=== PATIENT | female | born 1950 | race Caucasian/White ===

== ENCOUNTER 2016-09-22 12:42 | Inpatient (IN) | payer MEDICAID ==
[~2016-09-22] VITALS: Ht 152.4 cm; Wt 52.6 kg
--- NOTE | 2016-09-22 12:50 | NUR ---
AAOX3, CAME TO ER FOR DIALYSIS. PATIENT LAST DIALYSIS WAS 7 DAYS AGO. RESP IS EVEN AND UNLABORED WITH NAD NOTED. SKIN IS WARM AND DRY. ASSISTED TO HOSPITAL GOWN. PLACED ON MONITOR. WILL CONTINUOUSLY MONITOR THE PATIENT. AWAITING MD FOR EVAL.
[2016-09-22 13:13] LABS: BASOPHILS # (AUTO) 0.1 /CMM (0.0-0.2); BASOPHILS % (AUTO) 0.9 % (0.0-2.0); EOSINOPHILS # (AUTO) 0.5 /CMM (0.0-0.7); EOSINOPHILS % (AUTO) 6.1 % (0.0-6.0); HEMATOCRIT 29 % (33-45); HEMOGLOBIN 9.4 g/dL (11.5-14.8); LYMPHOCYTES # (AUTO) 1.1 /CMM (0.8-4.8); MEAN CORPUSCULAR HEMOGLOBIN 32 PG (26.0-33.0); MEAN CORPUSCULAR HGB CONC 33 g/dl (31.0-36.0); MEAN CORPUSCULAR VOLUME 97 fL (82-100); MONOCYTES # (AUTO) 0.6 /CMM (0.1-1.30); NEUTROPHILS # (AUTO) 5.4 /CMM (1.8-8.9); PLATELET COUNT (AUTO) 253 /CMM (150-450); RDW COEFFICIENT OF VARIATION 15.4 (11.5-15.0); RED BLOOD CELL COUNT(AUTO) 2.97 MIL/uL (4.0-5.2); WHITE BLOOD COUNT (AUTO) 7.7 K/uL (4.3-11.0)
[2016-09-22 13:32] LABS: ALBUMIN 3.8 g/dL (3.4-5.0); BILIRUBIN,DIRECT 0.1 mg/dL (0.0-0.2); BILIRUBIN,TOTAL 0.5 mg/dL (0.2-1.0); CALCIUM, SERUM 8.2 mg/dL (8.5-10.1); TOTAL PROTEIN, SERUM 8.2 g/dL (6.4-8.2)
[2016-09-22 13:33] LABS: POTASSIUM 6.2 mmol/L (3.5-5.1)
--- NOTE | 2016-09-22 13:34 | NUR ---
CALLED NURSING SUP. FOR TELE BED
[2016-09-22 13:35] LABS: CREATININE 15.5 mg/dL (0.6-1.3)
[2016-09-22] MEDS ORDERED: INSULIN REGULAR, HUMAN 100 UNIT/ML 10 ML VIAL ONE (13:39)
[2016-09-22] MEDS ORDERED: FUROSEMIDE 20 MG/2 ML VIAL ONE (13:39)
[2016-09-22] MEDS ORDERED: DEXTROSE 50%-WATER 50 ML DISP.SYRIN ONE (13:39)
[2016-09-22] MEDS ORDERED: INSU100V7 SQ (13:47)
[2016-09-22] MEDS ORDERED: VITA1TAB56 PO (13:47)
[2016-09-22] MEDS ORDERED: CYAN10009 PO (13:47)
[2016-09-22] MEDS ORDERED: ATOR10TA PO (13:47)
[2016-09-22] MEDS ORDERED: AMLO10TA2 PO (13:47)
[2016-09-22] MEDS ORDERED: SEVE800T PO (13:47)
[2016-09-22] MEDS ORDERED: CLOP75TA2 PO (13:47)
[2016-09-22] MEDS ORDERED: FURO40TA5 PO (13:47)
[2016-09-22] MEDS ORDERED: TRAMADOL HCL 50 MG TABLET ONE (13:59)
[2016-09-22] MEDS ORDERED: DEXTROSE 50%-WATER 50 ML DISP.SYRIN IV ONE (14:00)
[2016-09-22] MEDS ORDERED: TRAMADOL HCL 50 MG TABLET PO ONE (14:00)
[2016-09-22] MEDS ORDERED: FUROSEMIDE 40 MG/4 ML VIAL IV ONE (14:00)
[2016-09-22] MEDS ORDERED: INSULIN REGULAR, HUMAN 100 UNIT/ML 10 ML VIAL IV ONE (14:00)
[2016-09-22] MEDS ORDERED: AMLODIPINE BESYLATE 5 MG TABLET PO SCH (14:00)
--- NOTE | 2016-09-22 14:15 | NUR ---
REPORT GIVEN TO STEVIE JOSE FOR LANE TELE [phone]
--- NOTE | 2016-09-22 15:30 | NUR ---
MS RN RECEIVED A NEW ADMISSION, 65 YEAR OLD FEMALE, AWAKE,ALERT,ORIENTED X4, CAME IN W/ CHRONIC KIDNEY DISEASE, NO HD FOR 7 DAYS, PATIENT UNDER DR. SMITH, WILL BE DIALIZED TODAY.
[2016-09-22 16:00] VITALS: BP 144/82
--- NOTE | 2016-09-22 16:00 | NUR ---
MS RN HD STARTED, TOLERATED WELL, NO DISTRESS NOTED,ALL NEEDS ATTENDED.
[2016-09-22] MEDS ORDERED: DEXTROSE 50%-WATER 50 ML DISP.SYRIN IV PRN (19:30)
--- NOTE | 2016-09-22 19:33 | NUR ---
MS RN HD STILL GOING ON, ENDORSED TO COBOL PROGRAMMER FOR CONTINUITY OF CARE., HELD B/P MEDS FOR DIALYSIS.
--- NOTE | 2016-09-22 19:48 | NUR ---
TELE/RN OPENING NOTES PATIENT HD DONE WITH OUTPUT OF 1600 REMOVED. ALERT, ORIENTED X2,WEAK, B/P 108/52 PULSE 84, WILL NEED TO APPLY TELE MONITORING ORDERED. RECEIVED REPORT FROM AM RN REGARDING PLAN FOR HD GERARDO AND FAMILY AT BEDSIDE RECEIVED MEDICATION LIST AND RECONCILED. WILL NEED TO TAKE PHOTO OF SOME BUE/BLE SKIN DISCOLORATION.CALL LIGHTS WITHIN REACH, BED IN LOCK POSITION..PROVIDE/OFFER FLUIDS. MONITOR ANY S/S OF HYPO/HYPERGLYCEMIA.
[2016-09-22 20:00] VITALS: BP 108/52
--- NOTE | 2016-09-22 20:00 | NUR ---
TELE/RN NOTES TELE READING AT SR 82
[2016-09-22] MEDS: INSULIN DETEMIR 100 UNIT/ML CARTRIDGE SQ SCH (22:00)
[2016-09-22] MEDS: BLOOD SUGAR DIAGNOSTIC 1 EACH STRIP IN SCH (22:09)
[2016-09-22] MEDS: ATORVASTATIN 10 MG TABLET PO SCH (22:10)
[2016-09-23] VITALS: BP 177/73
[2016-09-23] MEDS ORDERED: hydrALAZINE HCL 10 MG TABLET PO PRN (01:00)
--- NOTE | 2016-09-23 01:04 | NUR ---
TELE/RN NOTES PATIENT S/P 178/70 ELEVATED AND SKIN ITCH ON BUE REPORTED TO BUTTON RECLAIMER MD WILFRED V AND ORDERED HYDRALAZINE 10MG PO PRN FOR SBP >160 Q6HR AND HYDROCORTISONE CREAM APPLY TO AFFECTED AREA FOR ITCH. MD ORDER CARRIED OUT,
[2016-09-23] MEDS ORDERED: hydrALAZINE HCL 10 MG TABLET ONE (01:13)
[2016-09-23 04:00] VITALS: BP 153/64
--- NOTE | 2016-09-23 06:14 | NUR ---
TELE/RN CLOSING NOTES PATIENT IN BED, AWAKE, ALERTX3. ABLE TO VERBALIZE NEEDS. B/P CHECK AND 152/70. NO PAIN BUT WITH SOME SKIN IRRITATION , WILL PROVIDE PRN FOR ITCH, NO S/S OF SOB. WILL MONITOR S/S OF HYPO/HYPERGLYCEMIA. WILL ENDORSE TO AM RN REGARDING LANE,
[2016-09-23] MEDS: BLOOD SUGAR DIAGNOSTIC 1 EACH STRIP IN SCH ×4 (06:40→21:12)
[2016-09-23 07:04] LABS: BASOPHILS % (AUTO) 0.6 % (0.0-2.0); EOSINOPHILS # (AUTO) 0.5 /CMM (0.0-0.7); EOSINOPHILS % (AUTO) 6.5 % (0.0-6.0); HEMATOCRIT 30 % (33-45); HEMOGLOBIN 10.4 g/dL (11.5-14.8); LYMPHOCYTES % (AUTO) 12.7 % (20.0-44.0); MEAN CORPUSCULAR HEMOGLOBIN 33 PG (26.0-33.0); MEAN CORPUSCULAR HGB CONC 34 g/dl (31.0-36.0); MEAN CORPUSCULAR VOLUME 95 fL (82-100); MONOCYTES # (AUTO) 0.8 /CMM (0.1-1.30); MONOCYTES % (AUTO) 10.2 % (2.0-12.0); NEUTROPHILS # (AUTO) 5.3 /CMM (1.8-8.9); PLATELET COUNT (AUTO) 215 /CMM (150-450); RDW COEFFICIENT OF VARIATION 16.2 (11.5-15.0); RED BLOOD CELL COUNT(AUTO) 3.19 MIL/uL (4.0-5.2); WHITE BLOOD COUNT (AUTO) 7.6 K/uL (4.3-11.0)
[2016-09-23 07:26] LABS: ALBUMIN 3.6 g/dL (3.4-5.0); BILIRUBIN,TOTAL 0.6 mg/dL (0.2-1.0); CALCIUM, SERUM 8.3 mg/dL (8.5-10.1); MAGNESIUM 2.3 mg/dL (1.8-2.4)
[2016-09-23 07:32] LABS: THYROID STIMULATING HORMONE 1.455 uIU/mL (0.358-3.74)
[2016-09-23 07:36] LABS: PHOSPHORUS 8.1 mg/dL (2.5-4.9)
--- NOTE | 2016-09-23 07:42 | NUR ---
tele/rn notes received critical phosphorus level from lab for dialysis patient.
[2016-09-23 08:00] VITALS: BP 175/77
--- NOTE | 2016-09-23 08:00 | NUR ---
MS/RN AM SHIFT INITIAL NOTES RECEIVED PT AWAKE SITTING IN BED. PT A/O X 4, DENIES ANY SYMPTOMS, VERBALIZED FEELING BETTER TODAY COMPARED TO YESTERDAY. NO ACUTE CHANGE OF CONDITION NOTED. PT ON ROOM AIR, SATURATING @ 98%, LUNG SOUNDS CLEAR. IV SITE FLUSHED PATENT WITH NO S/S OF INFECTION, SL. AV FISTULA (+) OF THRILL AND BRUIT. PT IS SCHEDULED FOR DIALYSIS TX TODAY. SCHEDULED AM MEDS TO BE GIVEN. CL WITHIN REACHED AND SAFETY MAINTAINED. ON GOING MONITORING.
[2016-09-23] MEDS: PANTOPRAZOLE 40 MG TABLET.DR PO SCH (09:07)
[2016-09-23] MEDS: HYDROCORTISONE 0.5% CREAM 28.35 GM TUBE TP SCH (12:04)
[2016-09-23] MEDS: CALCIUM ACETATE 667 MG TABLET PO SCH ×2 (12:04→17:33)
[2016-09-23] MEDS: VIT B CMPLX 3/FA/VIT C/BIOTIN 1 TAB TABLET PO SCH (12:04)
[2016-09-23 16:00] VITALS: BP 163/73
[2016-09-23] MEDS: CLONIDINE HCL 0.1 MG TABLET PO PRN (18:52)
--- NOTE | 2016-09-23 19:30 | NUR ---
RN NOTES RECEIVED PT. AWAKE ON BED, A/OX4, AMBULATORY, S/P DIALYSIS, DENIES PAIN, NO SOB, CALL LIGHT WITHIN REACH, SIDERAILS UPX2 CONTINUE O MONITOR
--- NOTE | 2016-09-23 19:40 | NUR ---
MS/RN AM SHIFT END NOTES ALL NEEDS MET. PT HAD DIALYSIS TX, REMOVED 1.1 L OF FLUID, PT WAS CRAMPING AND TX WAS TERMINATED EARLY THAN SCHEDULED, POST TX, BP WAS HIGH, PT GIVEN PRN CLONIDINE. NO ACUTE CHANGE OF CONDITION NOTED DURING THE SHIFT. PT ENDORSED TO PM NURSE TO CONTINUE CARE. CL WITHIN REACHED AND SAFETY MAINTAINED.
[2016-09-23 20:00] VITALS: BP 153/56
[2016-09-23] MEDS: ATORVASTATIN 10 MG TABLET PO SCH (21:16)
[2016-09-23] MEDS: INSULIN DETEMIR 100 UNIT/ML CARTRIDGE SQ SCH (21:16)
--- NOTE | 2016-09-23 22:00 | NUR ---
RN NOTES PT. REFUSED HER LEVEMIR, BLOOD SUGAR- 113
[2016-09-24] VITALS (7 sets, daily range): BP systolic 123–163; BP diastolic 51–75
--- NOTE | 2016-09-24 06:44 | NUR ---
RN NOTES AWAKE, MORNING CARE RENDERED, PT. NEEDS ATTENDED. ENDORSED TO DAYSHIFT NURSE FOR CONTINUITY OF CARE
[2016-09-24 06:53] LABS: CALCIUM, SERUM 9.7 mg/dL (8.5-10.1); POTASSIUM 4.1 mmol/L (3.5-5.1)
[2016-09-24 07:05] LABS: CREATININE 7.6 mg/dL (0.6-1.3)
[2016-09-24] MEDS: BLOOD SUGAR DIAGNOSTIC 1 EACH STRIP IN SCH ×4 (07:30→22:33)
[2016-09-24] MEDS: PANTOPRAZOLE 40 MG TABLET.DR PO SCH (07:30)
--- NOTE | 2016-09-24 08:08 | NUR ---
Rounds after review of chart. Slight confusion on time, thought it was 12 and hospital initially thought it was another hospital. Possible language barrier. Phons., Creatinine and bun elevation.
--- NOTE | 2016-09-24 08:45 | NUR ---
Dialysis start at this time.
[2016-09-24] MEDS: AMLODIPINE BESYLATE 5 MG TABLET PO SCH ×2 (09:00→09:19)
[2016-09-24] MEDS ORDERED: IV NS 0.9% 1,000 ML ONE (09:13)
[2016-09-24] MEDS: CALCIUM ACETATE 667 MG TABLET PO SCH ×3 (09:19→18:26)
[2016-09-24] MEDS: VIT B CMPLX 3/FA/VIT C/BIOTIN 1 TAB TABLET PO SCH (09:19)
[2016-09-24] MEDS: HYDROCORTISONE 0.5% CREAM 28.35 GM TUBE TP SCH (09:21)
--- NOTE | 2016-09-24 09:22 | NUR ---
Normal saline given to dialysis nurse for flush of machine only. Patient non admin accucheck. Stable am glucose in lab work, 85mg/dl.
--- NOTE | 2016-09-24 11:45 | NUR ---
Patient family member [place] brought food to patient. After eating patient has pain and nausea. Says headache pain. Will call MD. Request of patient to take blood pressure.
[2016-09-24] MEDS ORDERED: ACETAMINOPHEN 650 MG/20.3 ML UDC NG PRN (12:00)
[2016-09-24] MEDS ORDERED: ONDANSETRON HCL/PF 4 MG/2 ML VIAL IV PRN (12:00)
--- NOTE | 2016-09-24 12:00 | NUR ---
Dialysis end. 1 Liter out. Blood pressure 144/61.
--- NOTE | 2016-09-24 14:15 | NUR ---
Rounds to patient room. Left side lying at this time.
--- NOTE | 2016-09-24 16:23 | NUR ---
Patient awoke without headache at this time. Ate [employer] family member had brought to her. She said nausea was better as well.
[2016-09-24] MEDS: INSULIN REGULAR, HUMAN 100 UNIT/ML 3 ML VIAL SQ PRN ×2 (16:46→22:44)
--- NOTE | 2016-09-24 17:04 | NUR ---
Blood glucose 164mg/dl required 3 units of regular insulin coverage.
--- NOTE | 2016-09-24 19:30 | NUR ---
MS/RN OPENING NOTES PT RESTING COMFORTABLY IN BED. EASILY AROUSABLE TO NAME/TOUCH. ON ROOM AIR. NO SOB OR S/S OF DISTRESS NOTED. IV TO RIGHT FA PATENT AND INTACT. REINFORCED WITH TAPE. PT HAD HD TODAY WITH 1L OUT. BED IN LOW/LOCKED POSITION WITH CALL LIGHT IN REACH. BED RAILS UPX2. WILL CONTINUE TO MONITOR
[2016-09-24] MEDS: ATORVASTATIN 10 MG TABLET PO SCH (22:34)
[2016-09-24] MEDS: INSULIN DETEMIR 100 UNIT/ML CARTRIDGE SQ SCH (22:43)
--- NOTE | 2016-09-24 23:00 | NUR ---
MS/RN BLOOD [id number]. ADMINISTERED SCHEDULED LEVEMIR AND 2 UNITS OF REGULAR INSULIN PER SLIDING SCALE. SNACKS PROVIDED AT BEDSIDE. WILL MONITOR FOR S/S OF HYPOGLYCEMIA
[2016-09-25] MEDS ORDERED: ZOLPIDEM TARTRATE 5 MG TABLET ONE (00:58)
--- NOTE | 2016-09-25 01:00 | NUR ---
MS/RN NOTES SPOKE TO DR. ARAGON BASKET HAND BRAIDER, ORDERED AMBIEN 5MG PO PRN INSOMNIA. ORDERS NOTED AND CARRIED OUT.
[2016-09-25] MEDS: ZOLPIDEM TARTRATE 5 MG TABLET PO PRN ×2 (01:02→21:22)
[2016-09-25] MEDS: BLOOD SUGAR DIAGNOSTIC 1 EACH STRIP IN SCH ×4 (06:58→21:03)
--- NOTE | 2016-09-25 06:59 | NUR ---
MS/RN NOTES BLOOD [id number], NO INSULIN ADMINISTRATION PER SLIDING SCALE. WILL CONTINUE TO MONITOR
--- NOTE | 2016-09-25 07:35 | NUR ---
MS/RN CLOSING NOTES PT AWAKE, A/OX3, ON ROOM AIR, NO SOB OR S/S OF DISTRESS OR PAIN NOTED. BREATHING EVEN AND UNLABORED. IV TO RFA PATENT AND INTACT. MADE PT COMFORTABLE THROUGHOUT SHIFT. ALL NEEDS MET AND ATTENDED. BED IN LOW/LOCKED POSITION WITH CALL LIGHT IN REACH. BED RAILS UPX2. ENDORSED TO AM SHIFT LANE.
[2016-09-25 07:38] LABS: CALCIUM, SERUM 9.5 mg/dL (8.5-10.1); MAGNESIUM 2.2 mg/dL (1.8-2.4); PHOSPHORUS 6.4 mg/dL (2.5-4.9); POTASSIUM 4.6 mmol/L (3.5-5.1)
--- NOTE | 2016-09-25 07:39 | NUR ---
RN OPENING NOTES RECEIVED PT. IN BED, AWAKE, HOB ELEVATED, NO SOB OR DISTRESS NOTED. A/O X3. IV INTACT AND PATENT. KEPT PATIENT CLEAN AND COMFORTABLE IN BED, CALL LIGHT WITHIN PATIENT REACH, WILL CONTINUE TO MONITOR ACCORDINGLY.
[2016-09-25 07:40] LABS: CREATININE 7.5 mg/dL (0.6-1.3)
[2016-09-25 08:00] VITALS: BP 146/71
[2016-09-25] MEDS: PANTOPRAZOLE 40 MG TABLET.DR PO SCH (08:39)
[2016-09-25] MEDS: CALCIUM ACETATE 667 MG TABLET PO SCH ×3 (08:39→17:51)
[2016-09-25] MEDS: AMLODIPINE BESYLATE 5 MG TABLET PO SCH (08:40)
[2016-09-25] MEDS: VIT B CMPLX 3/FA/VIT C/BIOTIN 1 TAB TABLET PO SCH (08:40)
[2016-09-25] MEDS: HYDROCORTISONE 0.5% CREAM 28.35 GM TUBE TP SCH (08:41)
[2016-09-25] MEDS ORDERED: TEMAZEPAM 7.5 MG CAPSULE PO PRN (10:00)
[2016-09-25] MEDS: INSULIN REGULAR, HUMAN 100 UNIT/ML 3 ML VIAL SQ PRN ×2 (12:08→21:11)
--- NOTE | 2016-09-25 14:30 | NUR ---
RN NOTES PATIENT IS WITH SON AT BEDSIDE WITH NO SOB OR DISTRESS NOTED.
[2016-09-25 16:00] VITALS: BP 141/79
--- NOTE | 2016-09-25 19:32 | NUR ---
ms/rn opening notes patient alert, oriented x3.able to verbalize needs. no s/s of sob or distress. received endorsement from am regarding continuity of care. patient awaiting for placement for dialysis will inform md regarding any changes. monitoring for any s/s of hypo/hyperglycemia. patient verbalized the need for sleeping pill as she stated she was not able to sleep and prefer to have it early.will continue to monitor. call lights within reach. fluids at bedside.
--- NOTE | 2016-09-25 19:33 | NUR ---
RN NOTES PATIENT IS COMFORTABLE IN BED WITH NO SOB OR DISTRESS NOTED.
--- NOTE | 2016-09-25 19:33 | NUR ---
RN CLOSING NOTES ALL NEEDS PROVIDED, ATTENDED, AND ANTICIPATED. KEPT PATIENT CLEAN AND COMFORTABLE IN BED. CALL LIGHT WITHIN PATIENT REACH, WILL CONTINUE TO MONITOR ACCORDINGLY. ENDORSED TO NEXT SHIFT RN TO CONTINUE CARE
[2016-09-25 20:00] VITALS: BP 179/89
[2016-09-25] MEDS: hydrALAZINE HCL 10 MG TABLET PO PRN (20:13)
[2016-09-25 20:31] VITALS: BP 179/89
[2016-09-25] MEDS: INSULIN DETEMIR 100 UNIT/ML CARTRIDGE SQ SCH (21:11)
--- NOTE | 2016-09-25 21:18 | NUR ---
ms/rn notes patient in bed , alert, oriented verbalized cant sleep and would like to take sleeping pill. given prn b/p med for sbp 172/70 will monitor
[2016-09-25] MEDS: ATORVASTATIN 10 MG TABLET PO SCH (21:22)
[2016-09-26] MEDS: BLOOD SUGAR DIAGNOSTIC 1 EACH STRIP IN SCH ×4 (06:14→21:40)
--- NOTE | 2016-09-26 06:32 | NUR ---
ms/rn closing notes patient in bed, awake, alert x3. able to verbalize needs. re apply dvt pump, bs check aw/ no coverage. patient verbalize need to be dc but awaiting for placement regarding hd and insurance, bed in lock position, call lights within reach, personal item within reach. will endorse to am rn regarding continuity of care.
--- NOTE | 2016-09-26 07:24 | NUR ---
RN OPENING NOTES RECEIVED PT. IN BED, AWAKE, HOB ELEVATED, NO SOB OR DISTRESS NOTED. A/O X4. IV INTACT AND PATENT. KEPT PATIENT CLEAN AND COMFORTABLE IN BED, CALL LIGHT WITHIN PATIENT REACH, WILL CONTINUE TO MONITOR ACCORDINGLY.
[2016-09-26 07:54] LABS: CALCIUM, SERUM 10.1 mg/dL (8.5-10.1); MAGNESIUM 2.1 mg/dL (1.8-2.4); PHOSPHORUS 6.3 mg/dL (2.5-4.9); POTASSIUM 4.9 mmol/L (3.5-5.1)
[2016-09-26 07:57] LABS: CREATININE 9.5 mg/dL (0.6-1.3)
[2016-09-26 08:00] VITALS: BP 179/76
[2016-09-26] MEDS: VIT B CMPLX 3/FA/VIT C/BIOTIN 1 TAB TABLET PO SCH (08:39)
[2016-09-26] MEDS: PANTOPRAZOLE 40 MG TABLET.DR PO SCH (08:39)
[2016-09-26] MEDS: CALCIUM ACETATE 667 MG TABLET PO SCH ×3 (08:39→17:27)
[2016-09-26] MEDS: HYDROCORTISONE 0.5% CREAM 28.35 GM TUBE TP SCH (08:40)
[2016-09-26] MEDS: AMLODIPINE BESYLATE 5 MG TABLET PO SCH (08:40)
--- NOTE | 2016-09-26 11:30 | NUR ---
RN NOTES PATIENT REFUSED ACCU CHECK BECAUSE SHE SAID THAT SHE DO NOT WANT TO BE POCK SO MANY TIMES A DAY. SHE ASK ME TO COME BACK AT 1730 FOR THE NEXT ACCU CHECK.
--- NOTE | 2016-09-26 14:30 | NUR ---
RN NOTES PATIENT IS AWAKE WATCHING HER IPAD WITH NO SIGNS OF SOB OR DISTRESS NOTED.
[2016-09-26 16:00] VITALS: BP 160/70
--- NOTE | 2016-09-26 16:40 | NUR ---
RN FRANCISCA JOSEPH THE MARGIN ANALYST INFORMED ME THAT PATIENT WILL LEAVE AMA TOMORROW MORNING BECAUSE OF INSURANCE ISSUES.
[2016-09-26 20:00] VITALS: BP 164/85
--- NOTE | 2016-09-26 20:03 | NUR ---
MS/RN OPENING NOTES PATIENT IN BED, HAVING DIALYSIS PROCEDURE STARTED IN LATER PART OF PM .ALERT, ORIENTEDX3. NO S/S OF SOB OR DISTRESS. RECEIVED ENDORSEMENT FROM AM RN REGARDING RESIDENT REFUSAL TO HAVE ACCUCHECK AND PREFER TO HAVE IT DONE AFTER DIALYSIS. WILL CONTINUE TO PROVIDE CARE AND ATTEND NEEDS. BED IN LOCK POSITION.
[2016-09-26] MEDS: INSULIN DETEMIR 100 UNIT/ML CARTRIDGE SQ SCH (21:43)
[2016-09-26] MEDS: ATORVASTATIN 10 MG TABLET PO SCH (21:49)
[2016-09-26] MEDS: ZOLPIDEM TARTRATE 5 MG TABLET PO PRN (21:49)
--- NOTE | 2016-09-27 03:30 | NUR ---
ms/rn notes report given to rn for continuity of care.
--- NOTE | 2016-09-27 07:30 | NUR ---
RECEIVED PT. ALERT AND ORIENTED X4-NO COMPLAINTS OFFERED.
[2016-09-27 08:00] VITALS: BP 182/73
[2016-09-27] MEDS: BLOOD SUGAR DIAGNOSTIC 1 EACH STRIP IN SCH ×5 (08:31→21:32)
[2016-09-27] MEDS: VIT B CMPLX 3/FA/VIT C/BIOTIN 1 TAB TABLET PO SCH (08:32)
[2016-09-27] MEDS: NIFEdipine XL (30MG) 30 MG TAB PO SCH (08:32)
[2016-09-27] MEDS: CALCIUM ACETATE 667 MG TABLET PO SCH ×3 (08:32→18:23)
[2016-09-27] MEDS: PANTOPRAZOLE 40 MG TABLET.DR PO SCH (08:33)
[2016-09-27] MEDS: HYDROCORTISONE 0.5% CREAM 28.35 GM TUBE TP SCH (08:36)
[2016-09-27 09:22] VITALS: BP 150/73
--- NOTE | 2016-09-27 14:56 | NUR ---
CASE MGMT. IN TO SPEAK WITH PT. REGARDING DC PLANNING.
[2016-09-27 16:00] VITALS: BP 169/73
[2016-09-27] MEDS: hydrALAZINE HCL 10 MG TABLET PO PRN (17:18)
--- NOTE | 2016-09-27 18:00 | NUR ---
REFUSING ACCU-CHECK AT NOON AND DINNER TIME.
--- NOTE | 2016-09-27 19:30 | NUR ---
RN NOTE; RECEIVED PT IN BED AWAKE AND ALERT. BREATHING EVENLY. NO SOB. NO S/S FLUID OVERLOAD. DENIED ANY PAIN. CALL LIGHT WITHIN REACH. WILL CONT TO MONITOR .
[2016-09-27 20:00] VITALS: BP 147/66
[2016-09-27] MEDS: diphenhydrAMINE HCL 25 MG CAPSULE PO PRN (21:32)
[2016-09-27] MEDS: ATORVASTATIN 10 MG TABLET PO SCH (21:32)
--- NOTE | 2016-09-27 21:33 | NUR ---
RN NOTE; BENADRYL GIVEN FOR C/O ITCHINESS. RESTORIL GIVEN PER PT'S REQUEST FOR C/O INABILITY TO SLEEP. EXPLAINED TO THE PT THAT BENADRYL WILL ALREADY MAKE HER SLEEPY BUT PT STILL WANTS TO TAKE THE RESTORIL AND ALSO REPORTED THAT AMBIEN DID NOT HELP HER TO SLEEP THE NIGHT BEFORE. WILL CONT TO MONITOR
[2016-09-27] MEDS: INSULIN REGULAR, HUMAN 100 UNIT/ML 3 ML VIAL SQ PRN (21:38)
[2016-09-27] MEDS: INSULIN DETEMIR 100 UNIT/ML CARTRIDGE SQ SCH (21:39)
--- NOTE | 2016-09-28 06:26 | NUR ---
RN NOTE; PT IN BED SLEEPING, AROUSES EASILY, NO ACUTE EVENT DURING THE NIGHT, NO C/O PAIN OR DISCOMFORT. NEEDS ATTENDED. CALL LIGHT WITHIN REACH. WILL CONT TO MONITOR
[2016-09-28] MEDS: BLOOD SUGAR DIAGNOSTIC 1 EACH STRIP IN SCH ×4 (06:48→21:37)
[2016-09-28 08:00] VITALS: BP 161/66
[2016-09-28] MEDS: NIFEdipine XL (30MG) 30 MG TAB PO SCH (09:15)
[2016-09-28] MEDS: CALCIUM ACETATE 667 MG TABLET PO SCH ×3 (09:16→17:54)
[2016-09-28] MEDS: PANTOPRAZOLE 40 MG TABLET.DR PO SCH (09:16)
[2016-09-28] MEDS: HYDROCORTISONE 0.5% CREAM 28.35 GM TUBE TP SCH (09:17)
[2016-09-28] MEDS: VIT B CMPLX 3/FA/VIT C/BIOTIN 1 TAB TABLET PO SCH (09:17)
[2016-09-28] MEDS: hydrALAZINE HCL 10 MG TABLET PO PRN (09:17)
[2016-09-28] MEDS: diphenhydrAMINE HCL 25 MG CAPSULE PO PRN ×2 (09:21→17:54)
[2016-09-28 16:00] VITALS: BP 148/64
--- NOTE | 2016-09-28 19:30 | NUR ---
RN NOTE; RECEIVED PT IN BED AWAKE AND ALERT W/ FAMILY AT THE BED SIDE. BREATHING EVENLY. NO SOB.. S/P HD W/ NO COMPLICATIONS. DRESSING ON AV FISTULA ON LFA CDI. DENIED ANY PAIN. CALL LIGHT WITHIN REACH. WILL CONT TO MONITOR .
[2016-09-28 20:00] VITALS: BP 119/62
[2016-09-28 20:18] VITALS: BP 119/62
[2016-09-28] MEDS: ATORVASTATIN 10 MG TABLET PO SCH (21:37)
[2016-09-28] MEDS: ZOLPIDEM TARTRATE 5 MG TABLET PO PRN (21:42)
--- NOTE | 2016-09-28 21:45 | NUR ---
AMBIEN GIVEN ORDERED PER PT'S REQUEST FOR C/O INSOMNIA. WILL CONT TO MONITOR
[2016-09-28] MEDS: INSULIN DETEMIR 100 UNIT/ML CARTRIDGE SQ SCH (21:46)
[2016-09-28] MEDS: INSULIN REGULAR, HUMAN 100 UNIT/ML 3 ML VIAL SQ PRN (21:47)
--- NOTE | 2016-09-29 06:16 | NUR ---
RN NOTE; PT IN BED SLEEPING . AROUSES EASILY. NO ACUTE CHANGES OR COMPLICATIONS S/P HD OVER THE NIGHT . NO C/O PAIN OR DISCOMFORT. NEEDS MET. CALL LIGHT WITHIN REACH. WILL CONT TO MONITOR.
[2016-09-29] MEDS: BLOOD SUGAR DIAGNOSTIC 1 EACH STRIP IN SCH ×4 (06:48→21:34)
[2016-09-29] MEDS: PANTOPRAZOLE 40 MG TABLET.DR PO SCH (06:57)
--- NOTE | 2016-09-29 07:52 | NUR ---
MS RN NOTES PATIENT IS IN BED RESTING. PATIENT IS A/OX4. NO SOB OR ANY S/S OF DISTRESS NOTED. IV IS PATENT AND INTACT. CALL LIGHT IS WITHIN REACH. BED IS IN LOWEST LOCKED POSITION. WILL CONTINUE TO MONITOR THROUGHOUT SHIFT.
[2016-09-29 08:05] VITALS: BP 138/64
[2016-09-29] MEDS: CALCIUM ACETATE 667 MG TABLET PO SCH ×3 (08:55→17:39)
[2016-09-29] MEDS: NIFEdipine XL (30MG) 30 MG TAB PO SCH (08:55)
[2016-09-29] MEDS: VIT B CMPLX 3/FA/VIT C/BIOTIN 1 TAB TABLET PO SCH (08:55)
[2016-09-29] MEDS: diphenhydrAMINE HCL 25 MG CAPSULE PO PRN ×2 (08:59→20:02)
[2016-09-29] MEDS: HYDROCORTISONE 0.5% CREAM 28.35 GM TUBE TP SCH (09:00)
[2016-09-29 16:14] VITALS: BP 147/68
--- NOTE | 2016-09-29 18:56 | NUR ---
MS RN NOTES PATIENT IS A/OX4. NO S/S OF DISTRESS NOTED. NO S/S OF SOB NOTED. FAMILY MEMBER AT BEDSIDE. PATIENT REFUSES ALL MORNING AND AFTERNOON BLOOD SUGAR CHECKS AND ONLY REQUESTS FOR HER BLOOD SUGAR TO BE CHECKED BEFORE BED. ALL PATIENT NEEDS HAVE BEEN MET. BED IS IN LOW LOCKED POSITION. CALL LIGHT WITHIN REACH. WILL ENDORSE CARE TO PM SHIFT.
--- NOTE | 2016-09-29 19:45 | NUR ---
RN INITIAL NOTES REPORT WAS RECEIVED FROM DAY SHIFT. PATIENT IS IN BED RESTING. PATIENT IS A/OX4. NO SOB OR ANY S/S OF DISTRESS NOTED. IV ON RIGHT HAND, LEFT AV FISTULA WITH BRUIT AND THRILL. CALL LIGHT IS WITHIN REACH. BED IS IN LOWEST LOCKED POSITION. WILL CONTINUE TO MONITOR THROUGHOUT SHIFT.
[2016-09-29 20:00] VITALS: BP 145/65
--- NOTE | 2016-09-29 20:08 | NUR ---
MS HUBBARD PRN PER PT REQUEST, BENADRYL WAS GIVEN FOR ITCHING.
[2016-09-29] MEDS: ATORVASTATIN 10 MG TABLET PO SCH (21:28)
[2016-09-29] MEDS: INSULIN REGULAR, HUMAN 100 UNIT/ML 3 ML VIAL SQ PRN (21:35)
[2016-09-29] MEDS: INSULIN DETEMIR 100 UNIT/ML CARTRIDGE SQ SCH (21:36)
--- NOTE | 2016-09-29 21:36 | NUR ---
BLOOD SUGAR BS 122, PT REFUSED LEVEMIR. WILL CONTINUE TO MONITOR FOR ANY S/S OF HYPO/HYPER GLYCEMIA
[2016-09-30] MEDS: INSULIN REGULAR, HUMAN 100 UNIT/ML 3 ML VIAL SQ PRN (06:09)
--- NOTE | 2016-09-30 06:19 | NUR ---
BLOOD SUGAR PT BLOOD SUGAR 151, PT REFUSED INSULIN. WILL CONTINUE TO MONITOR FOR S/S OF HYPO/HYPER GLYCEMIA
--- NOTE | 2016-09-30 06:28 | NUR ---
MS RN CLOSING NOTES PATIENT IS A/OX4. NO S/S OF DISTRESS NOTED. NO S/S OF SOB NOTED. PATIENT ALLOWED US TO CHECK BLOOD SUGAR BUT REFUSED INSULIN DURING PM SHIFT. PATIENT IS AWARE OF DIALYSIS SCHEDULED FOR TODAY. ALL PATIENT NEEDS HAVE BEEN MET. BED IS IN LOW LOCKED POSITION. CALL LIGHT WITHIN REACH. WILL ENDORSE CARE TO AM SHIFT.
[2016-09-30] MEDS: BLOOD SUGAR DIAGNOSTIC 1 EACH STRIP IN SCH ×4 (06:39→22:23)
--- NOTE | 2016-09-30 07:30 | NUR ---
MS RN NOTES RECEIVED PATIENT AWAKE IN BED. AOX3. BREATHING EVEN AND NON LABORED. DENIES ANY PAIN AT THIS TIME. PER ENGINEERING PRODUCTION WORKER REPORT PT IS FOR DIALYSIS TODAY. CALL LIGHT WITHIN REACH, BED IN LOW POSITION FOR SAFETY MEASURES. WILL CONTINUE TO MONITOR.
[2016-09-30 08:00] VITALS: BP 172/74
[2016-09-30] MEDS: VIT B CMPLX 3/FA/VIT C/BIOTIN 1 TAB TABLET PO SCH (08:27)
[2016-09-30] MEDS: CALCIUM ACETATE 667 MG TABLET PO SCH ×3 (08:27→17:47)
[2016-09-30] MEDS: PANTOPRAZOLE 40 MG TABLET.DR PO SCH (08:27)
[2016-09-30] MEDS: NIFEdipine XL (30MG) 30 MG TAB PO SCH (08:28)
[2016-09-30] MEDS: HYDROCORTISONE 0.5% CREAM 28.35 GM TUBE TP SCH (08:31)
[2016-09-30] MEDS: diphenhydrAMINE HCL 25 MG CAPSULE PO PRN ×2 (09:44→18:48)
--- NOTE | 2016-09-30 12:30 | NUR ---
MS RN NOTES HEMODIALYSIS STARTED, RN BILL AT BEDSIDE. V/S 170/79, HR 90, RR 20, TEMP 98.2. WILL CONITE TO MONITOR.
--- NOTE | 2016-09-30 14:00 | NUR ---
MS RN NOTES SEEN AND EXAMINED BY DR. TRAN WITH NO NEW ORDERS MADE.
--- NOTE | 2016-09-30 15:30 | NUR ---
MS RN NOTES HEMODIALYSIS FINISHED, OUTPUT 800CC. V/S BP 139/61, HR 95, RR 20, TEMP 97.8. O2 SAT 97%. WILL CONTINUE TO MONITOR.
[2016-09-30 16:00] VITALS: BP 139/61
[2016-09-30 18:30] VITALS: BP 170/68
--- NOTE | 2016-09-30 18:30 | NUR ---
MS RN NOTES PT TRANSFERRED TO MS 2 RM 205-2. REPORT GIVEN TO STEVIE GARCIA FOR CONTINUITY OF CARE.
--- NOTE | 2016-09-30 18:35 | NUR ---
MS RN NOTES PATIENT TRANSFERRED FROM [facility] FOR CONTINUITY OF CARE. PATIENT IS AWAKE, A/O X4. SAFELY ASSISTED PATIENT TO BED, NO C/O PAIN OR ANY DISCOMFORT. PLACE CALL LIGHT WITHIN REACH. ENDORSED TO SPORTS MEDICINE TRAINER RN FOR CONTINUITY OF CARE.
[2016-09-30] MEDS: hydrALAZINE HCL 10 MG TABLET PO PRN (18:49)
--- NOTE | 2016-09-30 19:30 | NUR ---
RN NOTES: RECEIVED ASLEEP ON BED IN FLAT POSITION, LYING COMFORTABLY,AWAKE IN BETWEEN, A/OX3,WITH BRP,RFA G#24 INTACT, LFA-AV FISTULA ,(+) FOR THRILL AND BRUIT SOUND,BED LOW AND LOCKED, CALL LIGHT WITHIN EASY REACH.
[2016-09-30 20:00] VITALS: BP 154/72
--- NOTE | 2016-09-30 21:50 | NUR ---
RN NOTES: AWAKE, CALLS AND NEEDS ATTENDED, ABLE TO AMBULATE WITH ASSIST TO THE BATHROOM.
--- NOTE | 2016-09-30 22:00 | NUR ---
RN NOTES: MORNING CARE DONE, DIAPER CHANGE, BLOOD SUGAR CHECKED-168,LEVEMIR GIVEN,WILL CONTINUE TO MONITOR FOR SIGN OF HYPER/HYPOGLYCEMIA.CALL LIGHT WITHIN EASY REACH.
[2016-09-30] MEDS: ATORVASTATIN 10 MG TABLET PO SCH (22:23)
[2016-09-30] MEDS: INSULIN DETEMIR 100 UNIT/ML CARTRIDGE SQ SCH (22:24)
--- NOTE | 2016-10-01 07:10 | NUR ---
MS RN NOTES RECEIVED PATIENT AWAKE, SITTING UP IN BED. NO SOB NOTED. NO C/O PAIN AT THIS TIME. CALL LIGHT WITHIN REACH. WILL CONT TO MONITOR.
[2016-10-01] MEDS: BLOOD SUGAR DIAGNOSTIC 1 EACH STRIP IN SCH ×4 (07:14→22:44)
[2016-10-01] MEDS: INSULIN REGULAR, HUMAN 100 UNIT/ML 3 ML VIAL SQ PRN ×2 (07:15→21:31)
--- NOTE | 2016-10-01 07:16 | NUR ---
RN NOTES: BLOOD SUGAR CHECK-81,NO INSULIN GIVEN PER SCALE, WILL CONTINUE TO MONITOR FOR HYPER/HYPOGLYCEMIA.ENDORSED FOR CONTINUITY OF CARE.
[2016-10-01 08:00] VITALS: BP 175/79
[2016-10-01] MEDS: VIT B CMPLX 3/FA/VIT C/BIOTIN 1 TAB TABLET PO SCH (08:01)
[2016-10-01] MEDS: diphenhydrAMINE HCL 25 MG CAPSULE PO PRN ×2 (08:01→21:27)
[2016-10-01] MEDS: CALCIUM ACETATE 667 MG TABLET PO SCH ×3 (08:01→17:46)
[2016-10-01] MEDS: PANTOPRAZOLE 40 MG TABLET.DR PO SCH (08:01)
[2016-10-01] MEDS: NIFEdipine XL (30MG) 30 MG TAB PO SCH (08:02)
[2016-10-01] MEDS: hydrALAZINE HCL 10 MG TABLET PO PRN (08:09)
[2016-10-01] MEDS: HYDROCORTISONE 0.5% CREAM 28.35 GM TUBE TP SCH (08:39)
[2016-10-01] MEDS: CLONIDINE HCL 0.1 MG TABLET PO PRN (12:10)
--- NOTE | 2016-10-01 12:13 | NUR ---
ELEVATED BP 190/72, PATIENT IS A/O X4, NO C/O HEADACHE OR DIZZINESS. GIVEN CLONIDINE 0.1MG PO PRN. WILL REASSESS BP. CALL LIGHT WITHIN REACH.
[2016-10-01 16:00] VITALS: BP 133/61
--- NOTE | 2016-10-01 16:48 | NUR ---
BP 133/61 PATIENT REFUSED CHECKING TEMP. PER PATIENT SHE FEELS OK AND SHE DON'T HAVE FEVER. EXPLAINED IMPORTANCE OF TAKING COMPLETE V/S BUT PATIENT STILL REFUSED TEMP CHECK X3.
--- NOTE | 2016-10-01 18:32 | NUR ---
MS RN NOTES PATIENT IN BED, A/O X3. NOT IN DISTRESS. PATIENT IS NON COMPLIANT WITH TREATMENT- ACCU CHECK, TEMP CHECK. NO C/O PAIN OR ANY DISCOMFORT. AMBULATORY, VOIDED WITHOUT DIFFICULTY, HAD BOWEL MOVEMENT TODAY. CALL LIGHT WITHIN REACH. WILL ENDORSE TO HAND ETCHER HELPER RN FOR CONTINUITY OF CARE.
--- NOTE | 2016-10-01 19:30 | NUR ---
RN NOTE; PT IN BED AWAKE AND ALERT. BREATHING EVENLY. NO SOB. NO DISTRESS. SKIN WARM AND DRY. NO S/S OF HYPO OR HYPERGLYCEMIA. NO C/O PAIN OR DISCOMFORT. HD CATH INTACT. NEEDS ATTENDED. CALL LIGHT WITHIN REACH. WILL CONT TO MONITOR
[2016-10-01 20:00] VITALS: BP 142/72
[2016-10-01] MEDS: ATORVASTATIN 10 MG TABLET PO SCH (21:27)
--- NOTE | 2016-10-01 21:27 | NUR ---
BENADRYL GIVEN ORDERED FOR C/O ITCHINESS. WILL CONT TO MONITOR
[2016-10-01] MEDS: INSULIN DETEMIR 100 UNIT/ML CARTRIDGE SQ SCH (21:29)
[2016-10-01 21:52] VITALS: BP 142/72
--- NOTE | 2016-10-01 22:00 | NUR ---
PT REFUSED TAKING PICTURES. STATED " IT'S OK. I HAVE NO SKIN PROBLEM" RISK VS. BENEFITS WERE EXPLAINED TO THE PT. Addendum: 10/02/16 at 0101 by CLARKE AHMADI RN Amended: Links added.
[2016-10-02] MEDS: BLOOD SUGAR DIAGNOSTIC 1 EACH STRIP IN SCH ×4 (06:55→21:54)
--- NOTE | 2016-10-02 07:14 | NUR ---
RN NOTE ; PT IN BED SLEEPING AROUSES EASILY. BREATHING EVENLY. NO ACUTE CHANGES OVER THE NIGHT. NO S/S OF HYPO OR HYPERGLYCEMIA. NO C/O PAIN OR DISCOMFORT,. NO S/S OF ELECTROLYTE IMBALANCE. ASSISTED W./ ADLS. CALL LIGHT WITHIN REACH. REPORT GIVEN TO JOSE FOR LANE,
--- NOTE | 2016-10-02 07:15 | NUR ---
MS RN NOTES RECEIVED PATIENT IN BED, AWAKE. A/O X4. BREATHING EVEN AND NON LABORED. PER REPORT PATIENT REFUSED PHOTOS OF SKIN. WILL FOLLOW UP. CALL LIGHT WITHIN REACH. FOR HD TODAY.
[2016-10-02] MEDS: CALCIUM ACETATE 667 MG TABLET PO SCH ×3 (07:55→17:52)
[2016-10-02] MEDS: NIFEdipine XL (30MG) 30 MG TAB PO SCH (07:55)
[2016-10-02] MEDS: VIT B CMPLX 3/FA/VIT C/BIOTIN 1 TAB TABLET PO SCH (07:55)
[2016-10-02] MEDS: PANTOPRAZOLE 40 MG TABLET.DR PO SCH (07:55)
[2016-10-02 08:00] VITALS: BP 152/71
--- NOTE | 2016-10-02 08:40 | NUR ---
PATIENT REFUSING HYDROCORTISONE CREAM TO APPLY IN HER SKIN RASH/DRYNESS/SCRATCHES. PER PATIENT ITS NOT HELPING, AND SHE IS USING CLOBETASOL CREAM AT HOME. PATIENT AGREED WITH THE SKIN PHOTOS, WILL NOTIFY MD REGARDING CLOBETASOL CREAM.
[2016-10-02] MEDS: HYDROCORTISONE 0.5% CREAM 28.35 GM TUBE TP SCH (09:00)
--- NOTE | 2016-10-02 10:30 | NUR ---
PATIENT IS SEEN BY DR. ARAGON TODAY, HD TODAY PER . CM TO PLACE PATIENT AT HD CENTER AFTER INSURANCE ISSUE IS RESOLVED. NO DISCHARGE AT THIS TIME, PATIENT IS AWARE.
[2016-10-02 16:00] VITALS: BP 155/67
--- NOTE | 2016-10-02 16:15 | NUR ---
DIALYSIS TREATMENT STARTED, DIALYSIS NURSE AT THE BEDSIDE.
[2016-10-02] MEDS: diphenhydrAMINE HCL 25 MG CAPSULE PO PRN (17:53)
--- NOTE | 2016-10-02 17:55 | NUR ---
DIALYSIS TREATMENT STOPPED, BLOOD CLOTTED. DIALYSIS NURSE INFORMED DR. TRAN.
--- NOTE | 2016-10-02 19:28 | NUR ---
MS RN CLOSING NOTES PATIENT IN BED, NOT IN DISTRESS. LEFT FOREARM AV SHUNT, DRESSING INTACT. NO BLEEDING NOTED. NO C/O ITCHING, BENADRYL PO PRN EFFECTIVE. CALL LIGHT WITHIN REACH. ENDORSED TO SOFTWARE REVERSE ENGINEER RN FOR CONTINUITY OF CARE.
--- NOTE | 2016-10-02 19:40 | NUR ---
RN INITIAL NOTES: RECEIVED REPORT FROM JOSE HUBBARD, PT IN BED, AWAKE, A/O X4, DENIES ANY SOB OR CHEST PAIN, DENIES ANY HEAD ACHE OR LIGHT HEADEDNESS, PT S/P HD TODAY BUT [employer] INSTRUCTOR HAD TO STOPPED THE HD BECAUSE OFCLOTTED BLOOD, MD MARC ALEJANDRO AWARE, NO NEW ORDERS GIVEN, LEFT ARM AV FISTULA REMAINS IN PLACED DRESSING C/D/I, PT HAS RIGHT FA IV ACCESS PATENT AND FLUSHING WELL, ON HL. SAFETY PRECAUTIONS FOR FALL INITIATED CALL LIGHT IN REACH WILL CONTINUE TO MONITOR
[2016-10-02 20:00] VITALS: BP 142/59
[2016-10-02] MEDS: INSULIN DETEMIR 100 UNIT/ML CARTRIDGE SQ SCH (21:55)
[2016-10-02] MEDS: ATORVASTATIN 10 MG TABLET PO SCH (21:55)
--- NOTE | 2016-10-02 21:55 | NUR ---
ACCU CHECK: BLOOD SUGAR CHECK AND REVEAL 110, NO INSULIN COVERAGE GIVEN PER SLIDING SCALE, ALSO PT REFUSED LIPITOR AND LEVEMIR, WILL MONITOR PT FOR ANY S/S OF HYPOGLYCEMIA, EDUCATE PT REGARDING IMPORTANCE OF MED COMPLIANCE
[2016-10-02] MEDS: ZOLPIDEM TARTRATE 5 MG TABLET PO PRN (22:32)
--- NOTE | 2016-10-02 22:32 | NUR ---
AMBIEN: PT REQUESTED FOR SLEEPING PILL, PRN AMBIEN 5MG TAB PO ADMINISTERED TO THE PT AT THIS TIME, WILL CONTINUE TO MONITOR AND REASSESS
--- NOTE | 2016-10-03 04:13 | NUR ---
RN NOTES: PT SLEEPING AT THIS TIME, NOT IN ANY DISTRESS
[2016-10-03] MEDS: BLOOD SUGAR DIAGNOSTIC 1 EACH STRIP IN SCH ×4 (06:17→21:44)
[2016-10-03] MEDS: INSULIN REGULAR, HUMAN 100 UNIT/ML 3 ML VIAL SQ PRN ×2 (06:17→21:52)
--- NOTE | 2016-10-03 06:18 | NUR ---
ACCU CHECK: BLOOD SUGAR SHOWS 115, NO INSULIN COVERAGE PER SLIDING SCALE, WILL MONITOR PT FOR ANY S/S OF HYPOGLYCEMIA
--- NOTE | 2016-10-03 06:54 | NUR ---
MS RN CLOSING NOTES: PT IN BED, AWAKE, NO S/S OF DISTRESS NOTED, IV ACCESS REMAINS PATENT AND FLUSHING WELL, ON HL. FISTULA DRESSING REMAINS C/D/I. VS REMAINS STABLE, NEEDS ATTENDED. WILL ENDORSE TO DAY RN FOR LANE.
--- NOTE | 2016-10-03 07:30 | NUR ---
MS RN AM NOTES: PT IN BED, AWAKE, A/O X4, ON RA, DENIES ANY SOB OR CHEST PAIN, DENIES ANY HEAD ACHE OR LIGHT HEADEDNESS, RFA 24 G HL FLUSHES WELL, SITE CLEAR, LFA AV SHUNT THRILL PRESENT. CDI DRESSING. RENAL DIET. AMBULATORY. SAFETY PRECAUTIONS FOR FALL INITIATED CALL LIGHT IN REACH WILL CONTINUE TO MONITOR
[2016-10-03 08:00] VITALS: BP 148/95
[2016-10-03] MEDS: PANTOPRAZOLE 40 MG TABLET.DR PO SCH (09:11)
[2016-10-03] MEDS: CALCIUM ACETATE 667 MG TABLET PO SCH ×3 (09:11→17:18)
[2016-10-03] MEDS: VIT B CMPLX 3/FA/VIT C/BIOTIN 1 TAB TABLET PO SCH (09:11)
[2016-10-03] MEDS: NIFEdipine XL (30MG) 30 MG TAB PO SCH (09:12)
[2016-10-03] MEDS: diphenhydrAMINE HCL 25 MG CAPSULE PO PRN ×2 (09:13→19:43)
[2016-10-03] MEDS: HYDROCORTISONE 0.5% CREAM 28.35 GM TUBE TP SCH (09:13)
--- NOTE | 2016-10-03 09:30 | NUR ---
MS RN NOTES ADMINISTERED DUE MEDS.
--- NOTE | 2016-10-03 12:25 | NUR ---
MS RN NOTES REFUSED ACCUCHECK.
--- NOTE | 2016-10-03 14:00 | NUR ---
MS RN NOTES [facility] HD NURSE AT BEDSIDE.
[2016-10-03 16:00] VITALS: BP 164/85
--- NOTE | 2016-10-03 16:30 | NUR ---
MS RN NOTES HD COMPLETED 1.4 LITERS OUT. VSS
--- NOTE | 2016-10-03 17:30 | NUR ---
MS RN NOTES REFUSED ACCUCHECK.
[2016-10-03 18:00] VITALS: BP 164/85
--- NOTE | 2016-10-03 19:22 | NUR ---
MS RN NOTES NO OTHER SIGNIFICANT FINDINGS FOR TODAY. ALL NEEDS MET. PATIENT RESTING COMFORTABLY. NOT IN ANY DISTRESS. SAFETY MEASURES IN PLACE. ENDORSED TO NEXT SHIFT FOR LANE.
--- NOTE | 2016-10-03 19:30 | NUR ---
MS RN NOTES RECEIVED ON BED A/O X4,ABLE TO VERBALIZED NEEDS,ON HEMODIALYSIS,HD TOMORROW ORDER.WITH LEFT AV FISTULA FOR HD ACCESS,RFA SALINE LOCK FOR MEDS INTACT AND PATENT.C/O GENERALIZED ITCHINESS.WILL MEDICATE.CALL DOSS IN REACH,NEEDS ANTICIPATED.
--- NOTE | 2016-10-03 19:43 | NUR ---
MS RN NOTES MEDICATED WITH BENADRYL 25MG PO ORDERED Q 6 PRN FOR ITCHINESS
[2016-10-03 20:06] VITALS: BP 135/53
[2016-10-03 20:07] VITALS: BP 135/53
[2016-10-03] MEDS: ATORVASTATIN 10 MG TABLET PO SCH (21:43)
[2016-10-03] MEDS: ZOLPIDEM TARTRATE 5 MG TABLET PO PRN (21:44)
--- NOTE | 2016-10-03 21:44 | NUR ---
MS RN NOTES C/O INSOMNIA,AMBIEN 5MG PO GIVEN PER PATIENT REQUEST.
[2016-10-03] MEDS: INSULIN DETEMIR 100 UNIT/ML CARTRIDGE SQ SCH (21:51)
--- NOTE | 2016-10-03 22:00 | NUR ---
MS RN NOTES ACCU-CHECK BLOOD SUGAR CHECK 205,COVERED WITH HUMULIN E 4 UNITS PER SLIDING SCALE,ALONG LEVEMIR 14 UNITS GIVEN SQ VIA RIGHT DELTOID.WILL MONITOR FOR S/S OF HYPOGLYCEMIA
--- NOTE | 2016-10-04 04:00 | NUR ---
MS RN NOTES AWAKE,LISTENING TO MUSIC
--- NOTE | 2016-10-04 06:17 | NUR ---
MS RN NOTES APPEARS SLEEPY BUT SHES CLAIMING SHE DIDNT SLEEP.APPEARS DROWSY.CALL DOSS IN REACH,NEEDS ANTICIPATED WILL ENDORSE TO CARINE HUBBARD FOR LANE
[2016-10-04] MEDS: BLOOD SUGAR DIAGNOSTIC 1 EACH STRIP IN SCH ×4 (06:59→21:48)
--- NOTE | 2016-10-04 07:01 | NUR ---
MS RN NOTES ACCU-CHECK BLOOD SUGAR CHECK 65,ASYMPTOMATIC FOR HYPOGLYCEMIA.ORANGE JUICE WITH SUGAR GIVEN.WILL CONTINUE TO MONITOR STATUS.
--- NOTE | 2016-10-04 07:30 | NUR ---
MS RN AM NOTES: PT IN BED, AWAKE, A/O X4, ON RA, DENIES ANY SOB OR CHEST PAIN, DENIES ANY HEAD ACHE OR LIGHT HEADEDNESS, RFA 24 G HL FLUSHES WELL, SITE CLEAR, LFA AV SHUNT THRILL PRESENT. CDI DRESSING.RENAL DIET. AMBULATORY. SAFETY PRECAUTIONS FOR FALL INITIATED CALL LIGHT IN REACH WILL CONTINUE TO MONITOR
[2016-10-04 08:00] VITALS: BP 150/58
[2016-10-04 08:11] VITALS: BP 150/58
[2016-10-04] MEDS: VIT B CMPLX 3/FA/VIT C/BIOTIN 1 TAB TABLET PO SCH (08:17)
[2016-10-04] MEDS: PANTOPRAZOLE 40 MG TABLET.DR PO SCH (08:17)
[2016-10-04] MEDS: CALCIUM ACETATE 667 MG TABLET PO SCH ×3 (08:18→17:17)
[2016-10-04] MEDS: NIFEdipine XL (30MG) 30 MG TAB PO SCH (08:18)
[2016-10-04] MEDS: HYDROCORTISONE 0.5% CREAM 28.35 GM TUBE TP SCH (08:20)
--- NOTE | 2016-10-04 09:30 | NUR ---
MS RN NOTES ADMINISTERED DUE MEDS.
--- NOTE | 2016-10-04 12:00 | NUR ---
MS RN NOTES REFUSED ACCUCHECK.
[2016-10-04 16:00] VITALS: BP 167/69
--- NOTE | 2016-10-04 16:55 | NUR ---
MS RN NOTES SPOKE WITH DEVON RE ORDER FOR HD BY DR. ARAGON TODAY. PER DEVON, PT DIALYSED YESTERDAY AND ORDER IS FOR [facility]. I TOLD HIM THAT ORDER IS DATED FOR TODAY.
[2016-10-04] MEDS: diphenhydrAMINE HCL 25 MG CAPSULE PO PRN (17:17)
--- NOTE | 2016-10-04 17:37 | NUR ---
MS RN NOTES REFUSED ACCUCHECK.
[2016-10-04 18:00] VITALS: BP 167/69
--- NOTE | 2016-10-04 19:35 | NUR ---
MS RN NOTES RECEIVED ON BED A/O X3,NO SOB,CLAIMED SHE'S TRYING TO GET A SLEEP.SALINE LOCK RFA INTACT AND PATENT.WITH LFA AV FISTULA FOR HD ACCESS.DENIES DISCOMFORTS AT THE MOMENT.WILL CONTINUE TO MONITOR STATUS.
[2016-10-04 19:56] VITALS: BP 145/66
[2016-10-04 20:00] VITALS: BP 145/66
[2016-10-04] MEDS: ATORVASTATIN 10 MG TABLET PO SCH (21:49)
[2016-10-04] MEDS: INSULIN DETEMIR 100 UNIT/ML CARTRIDGE SQ SCH (21:54)
--- NOTE | 2016-10-04 22:00 | NUR ---
MS RN NOTES ACCU-CHECK BLOOD SUGAR CHECK 114,NO INSULIN COVERAGE,DUE LEVEMIR 14 UNITS HELD,PATIENT DIDN'T ATE MUCH DINNER FOOD
--- NOTE | 2016-10-05 06:04 | NUR ---
MS RN NOTES SLEPT MOST OF THE NIGHT,NO COMPLAINTS NOTED.WILL CONTINUE TO MONITOR BLOOD SUGAR.AWAITING PLACEMENT PER PHYSICIAN LIAISON.WILL ENDORSE TO DAY NURSE FOR LANE.
--- NOTE | 2016-10-05 08:00 | NUR ---
MS RN NOTES PATIENT IN BED RESTING NO SOB OR ACUTE DISTRESS NOTED. PERIPHERAL IV INTACT PATENT. AV SHUNT ON LEFT FOREARM. BED IN LOW LOCKED POSITION, CALL LIGHT WITHIN REACH. WILL CONTINUE TO MONITOR.
[2016-10-05 08:06] VITALS: BP 159/74
[2016-10-05] MEDS: BLOOD SUGAR DIAGNOSTIC 1 EACH STRIP IN SCH ×4 (08:18→21:53)
[2016-10-05] MEDS: CALCIUM ACETATE 667 MG TABLET PO SCH ×3 (08:18→17:22)
[2016-10-05] MEDS: PANTOPRAZOLE 40 MG TABLET.DR PO SCH (08:18)
[2016-10-05] MEDS: VIT B CMPLX 3/FA/VIT C/BIOTIN 1 TAB TABLET PO SCH (08:18)
[2016-10-05] MEDS: NIFEdipine XL (30MG) 30 MG TAB PO SCH (08:19)
[2016-10-05] MEDS: HYDROCORTISONE 0.5% CREAM 28.35 GM TUBE TP SCH (08:23)
[2016-10-05] MEDS: diphenhydrAMINE HCL 25 MG CAPSULE PO PRN ×3 (08:53→23:40)
[2016-10-05 16:00] VITALS: BP 131/47
--- NOTE | 2016-10-05 18:07 | NUR ---
MS RN NOTES PATIENT IN BED RESTING, NO SOB OR ACUTE DISTRESS NOTED. PATIENT NONE COMPLIANT WITH DIABETIC MANAGEMENT. PATIENT REFUSED NONE ACCU CHECK AND 1730. STATES SHE WILL ONLY ALLOW MORNING BEFORE BREAKFAST AND BEFORE SHE GOES TO BED. MD MADE AWARE. CALL LIGHT WITHIN REACH. ALL DUE MEDICATION GIVEN ORDERS. ALL NEEDS MET. PATIENT UNDERWENT HD WITH OUTPUT OF 1.5LITTERS. WILL ENDORSE CARE TO PM SHIFT.
[2016-10-05 20:00] VITALS: BP 143/58
--- NOTE | 2016-10-05 20:00 | NUR ---
PATIENT IN BED, ALERT AND ORIENTED X4, CALM, NO SOB, NO RESPIRATORY DISTRESS, 02 SAT AT ROOM AIR 99%, LUNG SOUNDS ARE CLEAR, ABDOMEN SOFT AND NON-TENDER, S/P HD TODAY, LEFT FOREARM AV ACCESS NOTED WITH BRUIT AND THRILL, NO BLEEDING, DRESSING INTACT, WILL REMOVE DRESSING AT MIDNIGHT. GENERALIZED SKIN CONDITION IS DRY AND ITCHY, RECEIVED BENADRYL IN THE AFTERNOON, WILL PROVIDE MEDICATION WHEN DUE. NEEDS ATTENDED, CALL LIGHT WITHIN REACH.
[2016-10-05] MEDS: ATORVASTATIN 10 MG TABLET PO SCH (21:53)
[2016-10-05] MEDS: INSULIN DETEMIR 100 UNIT/ML CARTRIDGE SQ SCH (21:57)
[2016-10-05] MEDS: INSULIN REGULAR, HUMAN 100 UNIT/ML 3 ML VIAL SQ PRN (21:57)
--- NOTE | 2016-10-05 22:03 | NUR ---
PATIENT REFUSED RESTORIL, WILL RETURN TO PYS
[2016-10-06] MEDS: BLOOD SUGAR DIAGNOSTIC 1 EACH STRIP IN SCH ×2 (06:25→12:00)
[2016-10-06] MEDS: INSULIN REGULAR, HUMAN 100 UNIT/ML 3 ML VIAL SQ PRN (06:27)
--- NOTE | 2016-10-06 06:28 | NUR ---
BG 93 MG/DL, NO INSULIN COVERAGE
--- NOTE | 2016-10-06 06:48 | NUR ---
PATIENT IN BED, ALERT AND AWAKE, NO SOB, NO RESPIRATORY DISTRESS, DENIES ANY PAIN AT THIS TIME, LEFT FOREARM AV FISTULA HAS NO BLEEDING, NO ADVERSE CHANGE OF CONDITION DURING SHIFT, SLEPT FOR 5 HOURS, KEPT SAFE AND COMFORTABLE, CALL LIGHT WITHIN REACH.
[2016-10-06 08:00] VITALS: BP 188/75
--- NOTE | 2016-10-06 08:00 | NUR ---
RN OPENING NOTES RECEIVED PATIENT ON BED RESTING, ALERT AND ORIENTED X3. RESPIRATIONS EVEN AND UNLABORED. NO ACUTE DISTRESS NOTED. IV SITE INTACT AND PATENT. LEFT FOREARM AV FISTULA NOTED WITH THRILL AND BRUIT. BED IN LOWEST POSITION, SIDERAILS UP X2. CALL LIGHT WITHIN REACH. WILL CONTINUE TO MONITOR.
[2016-10-06] MEDS: PANTOPRAZOLE 40 MG TABLET.DR PO SCH (08:48)
[2016-10-06] MEDS: CALCIUM ACETATE 667 MG TABLET PO SCH ×2 (08:48→13:14)
[2016-10-06] MEDS: VIT B CMPLX 3/FA/VIT C/BIOTIN 1 TAB TABLET PO SCH (08:49)
[2016-10-06] MEDS: NIFEdipine XL (30MG) 30 MG TAB PO SCH (08:51)
[2016-10-06 09:51] VITALS: BP 188/75
[2016-10-06] MEDS: CLONIDINE HCL 0.1 MG TABLET PO PRN (09:51)
[2016-10-06] MEDS: HYDROCORTISONE 0.5% CREAM 28.35 GM TUBE TP SCH (09:52)
--- NOTE | 2016-10-06 12:01 | NUR ---
CLARIFIED WITH DR JAVON TRAN IF THE PT NEEDS HEMODIALYSIS PRIOR TO SCHEDULE SINCE PT HAS AN OUTPT HD SCHEDULE MWF AND SHE WON'T BE DIALYZED NOT TILL SUNDAY.DR ALEJANDRO STATED THAT HD CAN WAIT TILL SUNDAY.
--- NOTE | 2016-10-06 15:30 | NUR ---
PATIENT DISCHARGED VIA WHEELCHAIR ACCOMPANIED BY NEPHEW AND PROCED TECH, LISA COSTA VOUCHER WAS GIVEN. PATIENT STABLE VITAL SIGNS.
== END 2016-10-06 15:30 | disposition home or self-care (01) | DRG 460 ==
LOC: ER 12:45 → EDSEX 12:45 → TELE 13:50 → MED 09-23 08:20 → MEDSG2 09-30 18:35
PROVIDERS: ADMIT Internal Medicine; ATTEND Internal Medicine
PROC: 5A1D60Z (ICD-10-PCS; principal; 2016-09-22)
DX: I12.0 Hypertensive chronic kidney disease with stage 5 chronic kidney disease or end stage renal disease (principal); E11.22 Type 2 diabetes mellitus with diabetic chronic kidney disease; N18.6 End stage renal disease; Z99.2 Dependence on renal dialysis; D64.9 Anemia, unspecified; R53.1 Weakness; E83.39 Other disorders of phosphorus metabolism
CPT/HCPCS: 36415; 71010-TC; 80048-TC; 80053-TC; 80076-TC; 82962-TC; 83540-TC; 83735-TC; 84100-TC; 84443-TC; 85025-TC; 86704; 86705; 86706; 86803; 87081-TC; 87340; 90935-TC; A4606; A6402; J1815; J1940; J2405; J7030; Q0163; Z7610

== ENCOUNTER 2016-10-25 16:58 | Inpatient (IN) | payer MEDICAID ==
[~2016-10-25] VITALS: Ht 152.4 cm; Wt 58.5 kg
[~2016-10-25 16:58] MED LIST: AMLO10TA2 PO; ATOR10TA PO; CLOP75TA2 PO; CYAN10009 PO; FURO40TA5 PO; INSU100V7 SQ; SEVE800T PO; VITA1TAB56 PO
--- NOTE | 2016-10-25 17:10 | NUR ---
BIB SON C/O LEFT SIDED CHEST PAIN NON RADIATING X 5 DAYS, MISSED HD SINCE LAST WEEK. PT AAOX3. GENERALIZED WEAKNESS NOTED. REPORTS HD ACCESS MALFUNCTION. SEEN BY MD FOR EVAL. SAFETY AND COMFORT MEASURES PROVIDED. WILL MONITOR.
--- NOTE | 2016-10-25 17:30 | NUR ---
IV ACCESS STARTED. BLOOD DRAWN FOR LABS.
[2016-10-25 17:37] LABS: BASOPHILS % (AUTO) 0.2 % (0.0-2.0); EOSINOPHILS # (AUTO) 0.7 /CMM (0.0-0.7); EOSINOPHILS % (AUTO) 6.3 % (0.0-6.0); HEMATOCRIT 23 % (33-45); HEMOGLOBIN 7.5 g/dL (11.5-14.8); LYMPHOCYTES # (AUTO) 1.2 /CMM (0.8-4.8); LYMPHOCYTES % (AUTO) 11.2 % (20.0-44.0); MEAN CORPUSCULAR HEMOGLOBIN 32 PG (26.0-33.0); MEAN CORPUSCULAR HGB CONC 33 g/dl (31.0-36.0); MEAN CORPUSCULAR VOLUME 99 fL (82-100); MONOCYTES # (AUTO) 0.5 /CMM (0.1-1.30); MONOCYTES % (AUTO) 5.2 % (2.0-12.0); NEUTROPHILS % (AUTO) 77.1 % (43.0-81.0); PLATELET COUNT (AUTO) 265 /CMM (150-450); RDW COEFFICIENT OF VARIATION 15.6 (11.5-15.0); RED BLOOD CELL COUNT(AUTO) 2.34 MIL/uL (4.0-5.2); WHITE BLOOD COUNT (AUTO) 10.4 K/uL (4.3-11.0)
[2016-10-25 17:58] LABS: PROTHROMBIN TIME 10.4 SECS (9.5-12.7)
[2016-10-25 18:07] LABS: CALCIUM, SERUM 8.3 mg/dL (8.5-10.1); CARBON DIOXIDE 13 mmol/L (21-32); CHLORIDE 107 mmol/L (98-107); GLUCOSE 98 mg/dL (74-106); POTASSIUM 5.6 mmol/L (3.5-5.1); SODIUM SERUM 137 mmol/L (136-145)
[2016-10-25 18:08] LABS: TROPONIN I < 0.017 ng/mL (0.00-0.056)
[2016-10-25 18:09] LABS: CREATININE 13.9 mg/dL (0.6-1.3); UREA NITROGEN, BLOOD 99 mg/dL (7-18)
[2016-10-25] MEDS ORDERED: FOLI0.8T2 PO (18:23)
[2016-10-25] MEDS ORDERED: CALC0.253 PO (18:25)
[2016-10-25] MEDS ORDERED: CARV25TA2 PO (18:25)
[2016-10-25] MEDS ORDERED: Calcium Gluconate 1GM/10ML 4.65 MEQ in IV D5W 50 ML IV ONE (18:30)
--- NOTE | 2016-10-25 18:30 | NUR ---
GROUP CALLED, PEANUT SHELLER, TRANSFERRED CALL TO
--- NOTE | 2016-10-25 18:37 | NUR ---
CALLED NURSING SUP. FOR MS BED
[2016-10-25] MEDS ORDERED: IV SET PRIMARY PUMP SET 1 EA INFUS.SET MC ONE (19:04)
--- NOTE | 2016-10-25 19:07 | NUR ---
RECEIVED REPORT FROM STEVIE CHOPRA FOR CONTINUE OF CARE. PT APPEARS COMFORTABLE.
--- NOTE | 2016-10-25 19:20 | NUR ---
REPORT GIVEN TO STEVIE ANDERSON FOR TELE BED.
[2016-10-25 19:37] LABS: IRON, SERUM 76 ug/dl (50-175); TOTAL IRON BINDING CAPACITY 251 ug/dl (250-450)
--- NOTE | 2016-10-25 19:42 | NUR ---
PT TRANSFERED TO MS BED 326 VIA WC.
--- NOTE | 2016-10-25 19:45 | NUR ---
MS RN ADMITTING NOTES: ADMITTED A 65 YO FEMALE PATIENT WHO WAS BROUGHT IN THE ER FOR AV FISTULA MALFUNCTION AND UREMIA. PATIENT WAS BROUGHT TO MS FLOOR VIA JUAN, AOX4, ON ROOM AIR, BREATHING EVEN AND UNLABORED. BREATH SOUNDS CLEAR TO AUSCULTATION. DENIES ANY PAIN AT THIS TIME. NOTED LEFT FOREARM AV SHUNT, WAS NOT ABLE TO PALPATE ANY STRONG THRILL. PIV OVER R HAND G20, INTACT AND PATENT TO FLUSH. NOTED SKIN DRYNESS OVER BLE AND BUTTOCKS, OTHERWISE, SKIN IS INTACT. PROVIDED FOR COMFORT AND SAFETY. ORIENTED TO UNIT. WILL CONT TO MONITOR.
--- NOTE | 2016-10-25 20:30 | NUR ---
RN NOTES: CALLED DR JAVON TRAN REGARDING ORDERED 2 UNITS PRBC WHILE PATIENT WAS IN ER (ENTERED BY FLAQUITA EMERSON). ALSO ASKED TO VERIFY IF PATIENT IS MED SURG STATUS. PER DR TRAN, DO NOT DO ANY BLOOD TRANSFUSION UNTIL HE COMES TO SEE HER IN THE AM.
[2016-10-25 20:45] VITALS: BP 145/61
[2016-10-25] MEDS ORDERED: CARVEDILOL 12.5 MG TABLET ONE (21:57)
[2016-10-25] MEDS: INSULIN DETEMIR 100 UNIT/ML CARTRIDGE SQ SCH (22:00)
[2016-10-25] MEDS ORDERED: BLOOD SUGAR DIAGNOSTIC 1 EACH STRIP IN SCH (22:00)
--- NOTE | 2016-10-25 22:10 | NUR ---
RN NOTES: PATIENT REFUSED TO HAVE ACCUCHECK AND BRUNILDA KAUR, STATED SHE HAS NOT EATEN MUCH THROUGHOUT THE DAY. EXPLAINED RISKS TO PATIENT, BUT SHE STILL REFUSED AND SAID SHE WOULD LIKE TO SLEEP.
[2016-10-25] MEDS: CARVEDILOL 12.5 MG TABLET PO SCH (22:14)
[2016-10-26] VITALS (12 sets, daily range): BP systolic 127–175; BP diastolic 49–76
--- NOTE | 2016-10-26 06:56 | NUR ---
MS RN CLOSING NOTES: PATIENT IN BED, AOX4, ON ROOM AIR, BREATHING EVEN AND UNLABORED. APPEARS CALM AND IN NO DISTRESS. ONLY COMPLAINS OF ITCHING, STATES THAT SHE USUALLY PUTS CORTISONE CREAM AT HOME AND THAT LOTION AGGRAVATES THE ITCHING. PIV OVER R HAND G 20 INTACT AND PATENT. DUE MEDS GIVEN. PROVIDED FOR COMFORT AND SAFETY. WILL ENDORSE TO AM RN FOR LANE.
[2016-10-26 07:13] LABS: BASOPHILS # (AUTO) 0.1 /CMM (0.0-0.2); BASOPHILS % (AUTO) 0.8 % (0.0-2.0); EOSINOPHILS # (AUTO) 0.8 /CMM (0.0-0.7); EOSINOPHILS % (AUTO) 7.2 % (0.0-6.0); HEMATOCRIT 22 % (33-45); HEMOGLOBIN 7.4 g/dL (11.5-14.8); LYMPHOCYTES # (AUTO) 1.5 /CMM (0.8-4.8); LYMPHOCYTES % (AUTO) 14.4 % (20.0-44.0); MEAN CORPUSCULAR HEMOGLOBIN 33 PG (26.0-33.0); MEAN CORPUSCULAR HGB CONC 34 g/dl (31.0-36.0); MEAN CORPUSCULAR VOLUME 99 fL (82-100); MONOCYTES # (AUTO) 0.9 /CMM (0.1-1.30); MONOCYTES % (AUTO) 8.8 % (2.0-12.0); NEUTROPHILS # (AUTO) 7.3 /CMM (1.8-8.9); NEUTROPHILS % (AUTO) 68.8 % (43.0-81.0); PLATELET COUNT (AUTO) 219 /CMM (150-450); RDW COEFFICIENT OF VARIATION 15.6 (11.5-15.0); RED BLOOD CELL COUNT(AUTO) 2.22 MIL/uL (4.0-5.2); WHITE BLOOD COUNT (AUTO) 10.6 K/uL (4.3-11.0)
[2016-10-26 07:24] LABS: CALCIUM, SERUM 8.3 mg/dL (8.5-10.1); POTASSIUM 5.2 mmol/L (3.5-5.1)
[2016-10-26 07:25] LABS: CREATININE 14.5 mg/dL (0.6-1.3)
--- NOTE | 2016-10-26 07:45 | NUR ---
MS RN NOTES RECEIVED REPORT WITH PATIENT RESTING COMFORTABLY IN BED. PT IS A/OX4. NO S/S OF DISTRESS OR SOB NOTED. IV IS PATENT AND INTACT. BED IS IN THE LOWEST, LOCKED POSITION. CALL LIGHT IS WITHIN REACH. WILL CONTINUE TO MONITOR THROUGHOUT SHIFT.
[2016-10-26 08:41] LABS: ALBUMIN 3.4 g/dL (3.4-5.0); BILIRUBIN,DIRECT 0.1 mg/dL (0.0-0.2); BILIRUBIN,TOTAL 0.3 mg/dL (0.2-1.0); TOTAL PROTEIN, SERUM 7.5 g/dL (6.4-8.2)
[2016-10-26] MEDS: CLOPIDOGREL BISULFATE 75 MG TABLET PO SCH (09:00)
[2016-10-26 09:13] LABS: TROPONIN I 0.007 ng/mL (0.00-0.056)
[2016-10-26 09:14] LABS: THYROID STIMULATING HORMONE 2.067 uIU/mL (0.358-3.74)
[2016-10-26] MEDS: VIT B CMPLX 3/FA/VIT C/BIOTIN 1 TAB TABLET PO SCH (09:39)
[2016-10-26] MEDS: CALCITRIOL 0.25 MCG CAPSULE PO SCH (09:39)
[2016-10-26] MEDS: SEVELAMER CARBONATE 800 MG TABLET PO SCH ×3 (09:39→18:00)
[2016-10-26] MEDS: CARVEDILOL 12.5 MG TABLET PO SCH ×2 (09:40→21:11)
[2016-10-26] MEDS: AMLODIPINE BESYLATE 10 MG TABLET PO SCH (09:40)
--- NOTE | 2016-10-26 10:30 | NUR ---
MS RN NOTES WAITING FOR MD TO MAKE ROUNDS BEFORE CARRYING OUT BLOOD PRODUCT ORDERS. MD STATED TO NIGHT NURSE TO HOLD ORDERS UNTIL HE SEES PATIENT. WILL CONTINUE TO MONITOR.
--- NOTE | 2016-10-26 13:30 | NUR ---
MS RN NOTES CALLED DR. TRAN. NO ANSWER. WAITING FOR RESPONSE. WILL CONTINUE TO MONITOR.
[2016-10-26] MEDS ORDERED: BLOOD IV SET 1 EA INFUS.SET MC ONE (15:53)
[2016-10-26] MEDS ORDERED: IV NS 0.9% 250 ML IV ONE (15:54)
--- NOTE | 2016-10-26 16:00 | NUR ---
MS RN NOTES PATIENT SEEN BY DR. TRAN. MD ORDERED FOR ONLY 1 UNIT TO BE TRANSFUSED FOR NOW. DOES NOT WANT OTHER UNIT TO BE TRANSFUSED. PLAN OF CARE WAS DISCUSSED WITH MD AND PATIENT FOR TEMPORARY ACCESS TO BE PLACED TOMORROW FOR DIALYSIS. POSSIBLE SURGERY ON SUNDAY FOR AV FISTULA REPAIR. WILL CONTINUE TO MONITOR.
--- NOTE | 2016-10-26 17:47 | NUR ---
MS RN NOTES PATIENT TOLERATING BLOOD TRANSFUSION WELL. PATIENT'S BP WAS ELEVATED. CHARGE NURSE AWARE. RATE OF TRANSFUSION DECREASED. PATIENT ASYMPTOMATIC. WILL CONTINUE TO MONITOR.
--- NOTE | 2016-10-26 19:01 | NUR ---
MS RN NOTES PATIENT IS RESTING IN BED COMFORTABLY. NO S/S OF DISTRESS OR SOB NOTED. PATIENT HAS 1 UNIT OF PRBC RUNNING. TOLERATING WELL. PATIENT A/OX4. IV IS PATENT AND INTACT. BED IS IN THE LOWEST, LOCKED POSITION. CALL LIGHT IS WITHIN REACH. WILL ENDORSE CARE TO PM SHIFT FOR LANE.
--- NOTE | 2016-10-26 20:17 | NUR ---
RN NOTES PATIENT IS RESTING IN BED COMFORTABLY. A&OX4. NO SOB. RESPIRATION EVEN AND UNLABORED. NO S/S OF DISTRESS. NO COMPLAIN OF PAIN/DISCOMFORT AT THIS TIME. IV IS PATENT AND INTACT. BED IS IN THE LOWEST AND LOCKED POSITION. CALL LIGHT IS WITHIN REACH. WILL CONTINUE TO MONITOR FOR SAFETY.
[2016-10-26] MEDS: ATORVASTATIN 10 MG TABLET PO SCH (21:11)
--- NOTE | 2016-10-26 21:30 | NUR ---
RN NOTES: PATIENT REFUSED TO HAVE ACCUCHECK AND LEVEMIR. EXPLAINED RISKS AND BENEFITS TO PATIENT. PT STILL REFUSED. WILL CONTINUE TO MONITOR.
[2016-10-26] MEDS: INSULIN DETEMIR 100 UNIT/ML CARTRIDGE SQ SCH (22:00)
[2016-10-27 04:34] VITALS: BP 80/51
[2016-10-27 06:43] LABS: BASOPHILS # (AUTO) 0.1 /CMM (0.0-0.2); BASOPHILS % (AUTO) 0.5 % (0.0-2.0); EOSINOPHILS % (AUTO) 6.1 % (0.0-6.0); HEMATOCRIT 27 % (33-45); HEMOGLOBIN 9.1 g/dL (11.5-14.8); LYMPHOCYTES # (AUTO) 1.7 /CMM (0.8-4.8); MEAN CORPUSCULAR HEMOGLOBIN 33 PG (26.0-33.0); MEAN CORPUSCULAR HGB CONC 34 g/dl (31.0-36.0); MEAN CORPUSCULAR VOLUME 97 fL (82-100); MONOCYTES # (AUTO) 1.4 /CMM (0.1-1.30); MONOCYTES % (AUTO) 8.6 % (2.0-12.0); NEUTROPHILS # (AUTO) 11.7 /CMM (1.8-8.9); NEUTROPHILS % (AUTO) 73.8 % (43.0-81.0); PLATELET COUNT (AUTO) 220 /CMM (150-450); RDW COEFFICIENT OF VARIATION 17.4 (11.5-15.0); RED BLOOD CELL COUNT(AUTO) 2.77 MIL/uL (4.0-5.2); WHITE BLOOD COUNT (AUTO) 15.8 K/uL (4.3-11.0)
--- NOTE | 2016-10-27 06:43 | NUR ---
RN CLOSING NOTES PATIENT IS RESTING IN BED COMFORTABLY. A&OX4. NO SOB. RESPIRATION EVEN AND UNLABORED. NO S/S OF DISTRESS. NO COMPLAIN OF PAIN/DISCOMFORT AT THIS TIME. IV IS PATENT AND INTACT. BED IS IN THE LOWEST AND LOCKED POSITION. CALL LIGHT IS WITHIN REACH. WILL ENDORSE TO NEXT SHIFT NURSE FOR CONTINUITY OF CARE.
--- NOTE | 2016-10-27 07:30 | NUR ---
MS RN NOTES PT A/OX4. NO S/S OF DISTRESS OR SOB NOTED. IV IS PATENT AND INTACT. CALL LIGHT WITHIN REACH. BED IN LOWEST, LOCKED POSITION. WILL CONTINUE TO MONITOR THROUGHOUT SHIFT.
[2016-10-27 07:40] LABS: ALANINE AMINOTRANSFERASE 14 U/L (12-78); ALBUMIN 3.5 g/dL (3.4-5.0); ALKALINE PHOSPHATASE 47 U/L (46-116); ASPARTATE AMINOTRANSFERASE 20 U/L (15-37); BILIRUBIN,TOTAL 0.9 mg/dL (0.2-1.0); CHLORIDE 106 mmol/L (98-107); GLUCOSE 91 mg/dL (74-106); MAGNESIUM 2.8 mg/dL (1.8-2.4); POTASSIUM 5.3 mmol/L (3.5-5.1); SODIUM SERUM 138 mmol/L (136-145); TOTAL PROTEIN, SERUM 7.5 g/dL (6.4-8.2)
[2016-10-27 07:47] LABS: CARBON DIOXIDE 9 mmol/L (21-32); UREA NITROGEN, BLOOD 122 mg/dL (7-18)
[2016-10-27 07:48] LABS: CREATININE 15.5 mg/dL (0.6-1.3); PHOSPHORUS 8.7 mg/dL (2.5-4.9)
[2016-10-27 07:51] LABS: TROPONIN I < 0.017 ng/mL (0.00-0.056)
[2016-10-27 08:00] VITALS: BP 149/55
[2016-10-27] MEDS ORDERED: LIDOCAINE 2% 20 ML MDV TP ONE (08:00)
[2016-10-27] MEDS ORDERED: MIDAZOLAM HCL 2 MG/2ML VIAL IV ONE (09:00)
[2016-10-27] MEDS: CLOPIDOGREL BISULFATE 75 MG TABLET PO SCH (09:00)
--- NOTE | 2016-10-27 09:00 | NUR ---
MS RN NOTES PATIENT SEEN BY DR. PORTER. TEMPORARY ACCESS FOR DIALYSIS PLACED ON RIGHT GROIN.
[2016-10-27] MEDS: ACETAMINOPHEN 325 MG TABLET PO PRN (10:37)
[2016-10-27] MEDS: SEVELAMER CARBONATE 800 MG TABLET PO SCH ×3 (10:37→18:14)
[2016-10-27] MEDS: CALCITRIOL 0.25 MCG CAPSULE PO SCH (10:37)
[2016-10-27] MEDS: VIT B CMPLX 3/FA/VIT C/BIOTIN 1 TAB TABLET PO SCH (10:37)
[2016-10-27] MEDS: CARVEDILOL 12.5 MG TABLET PO SCH ×2 (10:38→21:22)
[2016-10-27] MEDS: AMLODIPINE BESYLATE 10 MG TABLET PO SCH (10:38)
[2016-10-27 16:00] VITALS: BP 136/69
--- NOTE | 2016-10-27 18:00 | NUR ---
MS RN NOTES DIALYSIS DONE. 869 LITERS REMOVED. WILL CONTINUE TO MONITOR.
--- NOTE | 2016-10-27 18:30 | NUR ---
MS RN NOTES PATIENT WANTS NEPHEW TO SIGN CONSENT FORM FOR SURGERY TOMORROW.
--- NOTE | 2016-10-27 19:00 | NUR ---
MS RN NOTES PT RECEIVED IN BED, NO S/S OF RESPIRATORY DISTRESS OR SOB. IV SITE INTACT WITH NO S/S OF INFILTRATION NOTED. SAFE ENVIRONMENT PROVIDED FREE OF CLUTTERS .BED IN LOCKED, LOW POSITION. CALL LIGHT WITHIN EASY REACH. WILL CONTINUE TO MONITOR.
--- NOTE | 2016-10-27 19:45 | NUR ---
MS RN NOTES PT A/OX4. NO S/S OF DISTRESS OR SOB NOTED. IV IS PATENT AND INTACT. CALL LIGHT WITHIN REACH. BED IN LOWEST, LOCKED POSITION. ALL PATIENT NEEDS HAVE BEEN MET. WILL ENDORSE CARE TO PM SHIFT FOR LANE.
[2016-10-27 20:00] VITALS: BP 127/52
[2016-10-27] MEDS: ATORVASTATIN 10 MG TABLET PO SCH (21:21)
[2016-10-27] MEDS: INSULIN DETEMIR 100 UNIT/ML CARTRIDGE SQ SCH (21:23)
--- NOTE | 2016-10-27 21:26 | NUR ---
LEVEMIR 40 UNITS DUE AT 2200 REFUSED BY THE PATIENT DESPITE RISKS AND BENEFITS OFFERED 3 TIMES STILL REFUSED MD MADE AWARE
--- NOTE | 2016-10-28 06:38 | NUR ---
MS RN CLOSING NOTES PATIENT COMFORTABLY ASLEEP AND EASILY AWAKEN, HEAD OF BED ELEVATED FOR BETTER LUNG EXPANSION. R HAND 20 G WITH NO S/S OF INFILTRATION NOTED. NO S/S OF ACUTE DISTRESS, NO SOB, AFEBRILE, ALL NURSING CARE NEEDS PROVIDED AND RENDERED, KEPT CLEAN AND DRY AND COMFORTABLE, GOOD SKIN CARE PROVIDED. FREQUENT VISUAL CHECK DONE FOR SAFETY EVERY 2 HOURS. SAFE HAZARD FREE ENVIRONMENT PROVIDED. CALL LIGHT WITHIN EASY TO REACH, ON LOW BED AT ALL TIMES TO ENSURE SAFETY, WILL ENDORSE TO THE NEXT SHIFT CONTINUE PLAN OF CARE.
--- NOTE | 2016-10-28 07:47 | NUR ---
RN NOTES RECEIVED PT. PT IS ASLEEP, A&O X 4. NO S/S OF DISTRESS, PAIN OR SOB NOTED. IV LOCATED ON R HAND, 20 G. HD ACCESS LOCATED ON R GROIN. PT IS AMBULATORY. AWAITING CONSENT FOR PROCEDURE FROM NEPHEW THIS MORNING. WILL FOLLOW UP. WILL CONTINUE TO MONITOR.
[2016-10-28 08:00] VITALS: BP 130/61
[2016-10-28 08:18] LABS: BASOPHILS # (AUTO) 0.1 /CMM (0.0-0.2); BASOPHILS % (AUTO) 0.5 % (0.0-2.0); EOSINOPHILS # (AUTO) 0.6 /CMM (0.0-0.7); EOSINOPHILS % (AUTO) 4.4 % (0.0-6.0); HEMATOCRIT 28 % (33-45); HEMOGLOBIN 9.7 g/dL (11.5-14.8); LYMPHOCYTES # (AUTO) 1.4 /CMM (0.8-4.8); LYMPHOCYTES % (AUTO) 10.3 % (20.0-44.0); MEAN CORPUSCULAR HEMOGLOBIN 32 PG (26.0-33.0); MEAN CORPUSCULAR HGB CONC 34 g/dl (31.0-36.0); MEAN CORPUSCULAR VOLUME 94 fL (82-100); MONOCYTES # (AUTO) 1.4 /CMM (0.1-1.30); MONOCYTES % (AUTO) 10.3 % (2.0-12.0); NEUTROPHILS # (AUTO) 10.2 /CMM (1.8-8.9); NEUTROPHILS % (AUTO) 74.5 % (43.0-81.0); PLATELET COUNT (AUTO) 189 /CMM (150-450); RED BLOOD CELL COUNT(AUTO) 3.03 MIL/uL (4.0-5.2); WHITE BLOOD COUNT (AUTO) 13.7 K/uL (4.3-11.0)
[2016-10-28 08:24] LABS: PROTHROMBIN TIME 10.7 SECS (9.5-12.7)
[2016-10-28] MEDS: CALCITRIOL 0.25 MCG CAPSULE PO SCH (08:36)
[2016-10-28] MEDS: AMLODIPINE BESYLATE 10 MG TABLET PO SCH (08:37)
[2016-10-28] MEDS: SEVELAMER CARBONATE 800 MG TABLET PO SCH ×3 (08:37→18:00)
[2016-10-28] MEDS: CLOPIDOGREL BISULFATE 75 MG TABLET PO SCH (08:37)
[2016-10-28] MEDS: VIT B CMPLX 3/FA/VIT C/BIOTIN 1 TAB TABLET PO SCH (08:37)
[2016-10-28] MEDS: CARVEDILOL 12.5 MG TABLET PO SCH ×2 (08:37→21:03)
[2016-10-28 09:08] LABS: CALCIUM, SERUM 8.1 mg/dL (8.5-10.1); MAGNESIUM 2.2 mg/dL (1.8-2.4); PHOSPHORUS 3.8 mg/dL (2.5-4.9); POTASSIUM 4.1 mmol/L (3.5-5.1)
[2016-10-28 09:09] LABS: CREATININE 9.8 mg/dL (0.6-1.3)
[2016-10-28] MEDS ORDERED: THROMBIN (BOVINE) 5,000 UNITS VIAL TP ONE (11:03)
[2016-10-28] MEDS ORDERED: LIDOCAINE HCL/PF 1% 30 ML SDV ONE (11:03)
[2016-10-28] MEDS ORDERED: GELATIN SPONGE,ABSORBABLE 1 EA SPONGE TP ONE (11:03)
[2016-10-28] MEDS ORDERED: HEPARIN SODIUM, PORCINE 1,000 UNIT/ML VIAL ONE (11:03)
[2016-10-28] MEDS ORDERED: CELLULOSE,OXIDIZED 1 EA PACK MC ONE (11:04)
--- NOTE | 2016-10-28 11:35 | NUR ---
ms rn notes Patient left the unit for scheduled procedure accompanied by 2 OR nurse and nephew in stable condition. verbally responsive and able to make needs known. No complaint of pain or discomfort, nor chest pain.
[2016-10-28] MEDS ORDERED: MIDAZOLAM HCL 2 MG/2ML VIAL ONE (11:49)
[2016-10-28] MEDS ORDERED: FENTANYL PF 100MCG/2ML AMPUL ONE (11:50)
--- NOTE | 2016-10-28 13:28 | NUR ---
RN NOTE BERNICEVELA ACCIDENTLY PULLED AND RETURNED TO [facility]. PT HAS NOT YET RETURNED FROM PROCEDURE.
--- NOTE | 2016-10-28 13:53 | NUR ---
ms rn notes Held renvela due at 1300 due to patient is still in surgery for procedure.
[2016-10-28] MEDS ORDERED: ANESTHESIA TRAY IN PYXIS 1 EA TRAY MC ONE (14:03)
[2016-10-28] MEDS ORDERED: HYDROMORPHONE 1 MG/1 ML DISP.SYRIN ONE (14:28)
--- NOTE | 2016-10-28 14:53 | NUR ---
ms rn notes patient came back from surgery perm cath on the left chest wall with dressing intact. AV shunt on the left arm. No complaint of pain or discomfort noted. On room air and tolerated. Vital signs checked and recorded. Will continue to monitor accordingly.
[2016-10-28 14:56] VITALS: BP 154/61
[2016-10-28 16:00] VITALS: BP 126/71
--- NOTE | 2016-10-28 18:00 | NUR ---
ms rn notes S/P dialysis with 1 liter output. Vital signs checked and recorded. BP 130/65. Offered dinner for the patient and per patient "i am not hungry right now, I so tired let me sleep for now and I will eat later if I have appetite". Held renvela due to patient did not eat her dinner. Will continue to monitor accordingly.
--- NOTE | 2016-10-28 19:14 | NUR ---
ms rn closing notes All needs provided, attended, and anticipated. kept patient clean and comfortable in bed, call light within patient reach. Endorsed to next shift RN to continue care.
[2016-10-28 20:00] VITALS: BP 148/62
[2016-10-28] MEDS ORDERED: IV SET PRIMARY PUMP SET 1 EA INFUS.SET MC ONE (20:12)
[2016-10-28] MEDS: ANCEF 1 GM/50 ML D5W IV SCH ×2 (20:17)
[2016-10-28] MEDS: ATORVASTATIN 10 MG TABLET PO SCH (21:02)
[2016-10-28] MEDS: INSULIN DETEMIR 100 UNIT/ML CARTRIDGE SQ SCH (21:33)
[2016-10-29] MEDS: ANCEF 1 GM/50 ML D5W IV SCH ×2 (03:14)
--- NOTE | 2016-10-29 06:31 | NUR ---
MS RN CLOSING NOTES PATIENT COMFORTABLY ASLEEP AND EASILY AWAKEN, HEAD OF BED ELEVATED FOR BETTER LUNG EXPANSION. ON ATB WITH NO A/R NOTED. S/P L PERMA CATH PLACEMENT AND LEFT AV FISTULA INTACT DRESSING WITH NO S/S OF BLEEDING NOTED. R HAND 20G IV SITE INTACT WITH NO S/S OF INFILTRATION NOTED. NO S/S OF ACUTE DISTRESS, NOT IN RESPIRATORY DISTRESS, AFEBRILE, ALL NURSING CARE PROVIDED, NEEDS PROVIDED AND ATTENDED, KEPT CLEAN AND DRY AND COMFORTABLE,FREQUENT VISUAL CHECK DONE FOR SAFETY EVERY 2 HOURS. SAFE HAZARD FREE ENVIRONMENT PROVIDED. CALL LIGHT WITHIN EASY TO REACH, ON LOW BED AT ALL TIMES TO ENSURE SAFETY, WILL ENDORSE TO THE NEXT SHIFT CONTINUE PLAN OF CARE. NO S/S OF HYPO/HYPERGLYCEMIA
--- NOTE | 2016-10-29 07:10 | NUR ---
ADDENDUM: CORRECTION S/P L ARM AV ACCESS NO S/S OF BLEEDING NOTED
--- NOTE | 2016-10-29 07:28 | NUR ---
ms rn initial notes Received patient in bed, asleep, head of bed elevated, no SOB or distress noted, on room air and tolerated well. IV intact and patent. LCW perm cath, and left AV access. No signs and symptoms of bleeding noted. Alert and oriented x 3, verbally responsive and able to make needs known. Kept patient clean and comfortable in bed, call light with in patient reach, will continue to monitor accordingly.
[2016-10-29 08:00] VITALS: BP_SYST 131; BP_SYST 158; BP_DIAS 72; BP_DIAS 73
[2016-10-29] MEDS: ACETAMINOPHEN 325 MG TABLET PO PRN (08:41)
[2016-10-29] MEDS: SEVELAMER CARBONATE 800 MG TABLET PO SCH ×2 (08:42→12:33)
[2016-10-29] MEDS: CALCITRIOL 0.25 MCG CAPSULE PO SCH (08:42)
[2016-10-29] MEDS: VIT B CMPLX 3/FA/VIT C/BIOTIN 1 TAB TABLET PO SCH (08:42)
[2016-10-29] MEDS: CLOPIDOGREL BISULFATE 75 MG TABLET PO SCH (08:42)
[2016-10-29] MEDS: CARVEDILOL 12.5 MG TABLET PO SCH (08:42)
[2016-10-29] MEDS: AMLODIPINE BESYLATE 10 MG TABLET PO SCH (08:42)
[2016-10-29] MEDS ORDERED: TRAMADOL HCL 50 MG TABLET PO ONE (13:00)
[2016-10-29 16:00] VITALS: BP_SYST 116; BP_SYST 146; BP_DIAS 65; BP_DIAS 71
--- NOTE | 2016-10-29 18:42 | NUR ---
ms harness cutter notes discharge instructions given to patient and able to understand instructions. Alert and oriented x 4, verbally responsive. Perm cath intact with dressing. AV access no bleeding. IV on the right hand discontinued and pressured applied to prevent bleeding. Signed discharge paper and belonging list. Flu vaccine not given due to out of season. Pneumonia not given also due to patient is <65 years old. No complaint of pain or discomfort, nor chest pain. Patient left the hospital in stable condition via ambulatory accompanied by sneha cabello. Vital signs checked and recorded. MD and charge nurse aware.
== END 2016-10-29 18:45 | disposition home or self-care (01) | DRG 466 ==
LOC: ER 17:06 → TELE 19:12 → MED 19:35
PROVIDERS: ADMIT Internal Medicine Nephrology; ATTEND Internal Medicine Nephrology
PROC: 30233N1 Transfusion of Nonautologous Red Blood Cells into Peripheral Vein, Percutaneous Approach (ICD-10-PCS; principal; 2016-10-25)
PROC: 5A1D60Z (ICD-10-PCS; 2016-10-27)
PROC: 06HM33Z Insertion of Infusion Device into Right Femoral Vein, Percutaneous Approach (ICD-10-PCS; 2016-10-27)
DX: T82.510A Breakdown (mechanical) of surgically created arteriovenous fistula, initial encounter (principal); N18.6 End stage renal disease; E11.22 Type 2 diabetes mellitus with diabetic chronic kidney disease; I12.0 Hypertensive chronic kidney disease with stage 5 chronic kidney disease or end stage renal disease; Y71.2 Prosthetic and other implants, materials and accessory cardiovascular devices associated with adverse incidents; D64.9 Anemia, unspecified; E87.5 Hyperkalemia; Y92.009 Unspecified place in unspecified non-institutional (private) residence as the place of occurrence of the external cause; D72.829 Elevated white blood cell count, unspecified; E83.39 Other disorders of phosphorus metabolism; Z79.899 Other long term (current) drug therapy; Z82.49 Family history of ischemic heart disease and other diseases of the circulatory system; Z83.3 Family history of diabetes mellitus; Z99.2 Dependence on renal dialysis
CPT/HCPCS: 36415; 71010-TC; 80048-TC; 80053-TC; 80061-TC; 80076-TC; 82962-TC; 83540-TC; 83735-TC; 84100-TC; 84439-TC; 84443-TC; 84484-TC; 85025-TC; 85610-TC; 85730-TC; 86850-TC; 86921-TC; 87081-TC; 90935-TC; 93307-TC; 93930-TC; A4606; A6402; C1750; C1769; J0610; J0690; J1170; J1644; J1815; J2250; J2405; J2704; J2765; J3010; J3490; J7060; P9016-BL; Z7610